=== PATIENT | female | born 1955 | race Two or more races ===

== ENCOUNTER 2025-01-21 08:46 | Outpatient (RCR) | payer MEDICAID, SELFPAY ==
--- NOTE | 2025-01-22 10:20 | CTCCONSULT_ITS ---
Patient: EDDIE GERBER : 1955 MR#: [id number] Page 2 of 2 CONSULTATION NOTE DATE OF CONSULTATION: 01/21/2025 NAME: EDDIE GERBER ACCOUNT: [id number] : 1955 AGE: 69 REFERRING PHYSICIAN: Colton Chen MD PRIMARY PHYSICIAN: Visit summary Eddie Gerber, a female with breast cancer diagnosed 8 months ago, presented for oncology follow-up. Her history includes ER-positive breast cancer with a 3x3x2.5cm tumor, one positive lymph node out of five removed, and an Oncotype Dx score of 40. She has not received chemotherapy or radiation since diagnosis, and her last Prolia dose was 2 years ago. Treatment plan includes initiating chemotherapy despite delay, radiation therapy referral, full body scan for metastasis assessment, obtaining complete records to clarify hormone/HER2 status, anti-endocrine therapy, and restarting Prolia for bone health. REASON FOR VISIT: New breast cancer ONCOLOGY HISTORY: DIAGNOSIS: Malignant neoplasm of unspecified site of right female breast [ICD10] C50.911 DATE OF DIAGNOSIS: 04/23/2024 STAGE/TNM: IIB T2 N1 M0 TREATMENT HISTORY: Care?Plan Start?Date Cycle Day Intent DOCEtaxel?75,?Cyclophosphamide?600 01/21/2025 1 21 Curative?(adjuvant) HISTORY OF PRESENT ILLNESS: 69-year-old female Chief Complaint Follow-up for breast cancer diagnosed 8 months ago, seeking treatment options History of Present Illness Eddie Gerber is a patient with a history of breast cancer diagnosed more than 8 months ago. She presents for follow-up and management of her condition. The patient reports that she was diagnosed with breast cancer while visiting [place]. She underwent a biopsy and ultrasounds, but did not receive radiation therapy. The tumor was found in her breast, and she had 5 lymph nodes removed, one of which was positive for cancer. The tumor mass was 3 x 3 x 2.5 cm, located 3.5 cm from the nipple. Her Oncotype Dx score was 40, performed on July 15, 2024. 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 Eddie has not received any chemotherapy or radiation therapy since her diagnosis. She reports receiving Prolia in the past, with her last dose being almost 2 years ago. The patient's treatment adherence has been limited, as she has not undergone recommended therapies following her initial diagnosis and surgical intervention. The patient's current insurance is [employer], which she had when she returned from [place]. She mentions that no further treatment was provided in [place], but the lymph node removal was performed after her return. Medical History - Breast cancer diagnosed approximately 8 months ago - ER-positive breast cancer with N1 microstatic disease and N1 positive lymph node involvement - Primary breast tumor measuring 3 cm x 3 cm x 2.5 cm, located 3.5 cm from the nipple Surgical History - Breast cancer surgery with removal of 5 lymph nodes, one of which was positive for cancer - Breast biopsy Medications and Supplements - Prolia - Last dose received almost 2 years ago. Social History - Insurance: Patient has [employer] coverage OTHER MEDICAL HISTORY/CONDITIONS: HYPOTHYROIDISM DIABETES TYPE 2 HYPERLIPIDEMIA VITAMIN D DEFICIENCY OBESITY DEPRESSIVE DISORDER HYPERTENSION INSOMNIA GASTRITIS UTIS OSTEOPOROSIS RIGHT?BREAST?LUMPECTOMY?04/2024 FAMILY HISTORY: Father:?DENIES Mother:?DENIES Sibling:?DENIES Children:?DENIES Cancer?History:?RIGHT?BREAST?CANCER SOCIAL HISTORY: Occupational?History:?RETIRED [employer] Education?Level:?Completed something less than 8th grade Marital?Status:?Life?Partner Tobacco?Use:?DENIES ETOH?Use:?SOCIAL?OCCASIONAL?BEER Drug?Note:?DENIES Social History Note:?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 aspirin - 81 mg 1 Capsule Daily 2. atorvastatin - 10 mg 1 tab Daily 3. baclofen - 10 mg 1 tab In the evening 4. FLUoxetine - 20 mg 1 Capsule Daily 5. gemfibrozil - 600 mg 1 tab Twice a Day 6. hydrocodone-acetaminophen - 5-325 mg 1 tab Every 6 Hours 7. ibuprofen - 800 mg 1 tab Three times a day 8. levothyroxine - 50 mcg 1 tab Daily 9. lisinopril - 2.5 mg 1 tab Daily 10. metFORMIN - 850 mg 1 tab In the evening 11. propranoloL - 80 mg 1 tab Twice a Day 12. Vitamin D - 50,000 unit 1 Capsule Weekly Medications Last Reconciled by Cristina Nguyễn RN on 01/21/2025 ALLERGIES: No Known Allergies REVIEW OF SYSTEMS: A complete 14-point review of systems was performed and is negative except as noted in interval history. PHYSICAL EXAMINATION: VITAL SIGNS: Temperature?99, B/P?158/95, Height?62?inches Weight?200?lbs PAIN: 0 - No pain ECOG Performance Status: 0 - Asymptomatic and fully active GENERAL APPEARANCE: Appears well, in no apparent distress, appropriately interactive. HEENT: Normocephalic, no temporal wasting, normal conjunctiva, no scleral icterus, normal hearing, lips without lesions, neck normal range of motion. CARDIOVASCULAR: Not assessed. PULMONARY: Normal respiratory effort, no respiratory distress or use of accessory muscles, speaking in full sentences, no tachypnea. EXTREMITIES: No pedal edema or cyanosis. SKIN: Normal skin appearance. NEUROLOGIC: Alert and oriented x4. PSHYCHIATRIC: Appropriate affect, mood normal, behavior normal, intact thought and speech. LABORATORY DATA: I have personally reviewed and interpreted each of the patient?s relevant lab tests, abnormal findings are below: Date Laboratory, Imaging, and Diagnostic Test Results - Date: 07/15/2024 - Oncotype Dx score: 40 - Breast biopsy: - Tumor size: 3 x 3 x 2.5 cm - Location: 3.5 cm from the nipple - ER status: Positive - Lymph node status: N1 microstatic disease, N1 positive - Lymph node biopsy: - 5 lymph nodes removed - 1 lymph node positive for cancer ASSESSMENT/PLAN: Eddie Gerber is a patient with a history of breast cancer diagnosed over 8 months ago, presenting for oncology follow-up and management. Breast Cancer Assessment: Patient was diagnosed with breast cancer over 8 months ago. The tumor was 3 cm in size, located 3.5 cm from the nipple, with dimensions of 3 x 3 x 2.5 cm. One lymph node was positive (N1 microstatic disease), and 5 lymph nodes were removed during surgery. The Oncotype Dx score was 40, performed on July 15, 2024. The cancer was ER-positive. Based on the Oncotype score, the patient was recommended to receive chemotherapy and anti-endocrine therapy. However, the patient has not received any radiation therapy or chemotherapy to date. The hormone and HER2 status require further clarification. Given the significant delay in treatment initiation, the effectiveness of chemotherapy may be reduced, but it will still be considered. Plan: - Initiate chemotherapy as soon as possible, despite the delay - Refer patient for radiation therapy - Order full body scan to assess for metastatic disease - Obtain complete medical records from previous hospital to clarify: - Hormone receptor status - HER2 status - Details of cancer aggressiveness - Initiate anti-endocrine therapy (specific medication to be determined based on additional information) - Discuss risks, benefits, and alternatives of proposed treatments with patient - Schedule follow-up appointment to review test results and initiate treatment Port catheter placement Osteoporosis Assessment: Patient has a history of Prolia use, suggesting a diagnosis of osteoporosis or high risk for bone loss. The last Prolia dose was administered approximately 2 years ago, indicating a lapse in treatment. Plan: - Restart Prolia treatment - Assess bone health and consider ordering bone density scan - Educate patient on the importance of consistent Prolia administration for bone health ORDERS: Order # Description [id number] Initial PET/CT of Skull to Mid-Thigh [id number] Comprehensive Metabolic Panel - 12 + CBC with Auto Diff [id number] MD Follow Up 4 Week + CA 15-3 [id number] Infusion 5 Hours [id number] Refer To: + Surgery [id number] Injection Clinic 15 Min RETURN TO CLINIC: BILLING AND COMPLIANCE: I reviewed external records from providers outside my specialty as summarized above. I spent a total of 50 minutes on this patient?s care on the day of their visit excluding time spent related to any billed procedures. This time includes time spent with the patient as well as time spent documenting in the medical record, reviewing patients records and tests, obtaining history, placing orders, communicating with other healthcare professionals, counseling the patient, family or caregiver, and/or care coordination for the diagnoses above. Electronically Signed by: Colton Chen MD T: 10:18 AM CC: PCP: Referring: Colton Chen This document was completed utilizing speech recognition software. Grammatical errors, random word insertions, pronoun errors, and incomplete sentences are an occasional consequence of this system due to software limitations, ambient noise, and hardware issues. Any formal questions or concerns about the content, text or information contained within the body of this dictation should be directly addressed to the provider for clarification.
== END 2025-01-21 23:59 | disposition home or self-care (01) ==
LOC: SCTC 08:46
PROVIDERS: PCP Physician Assistant; Referring Provider Internal Medicine Hematology & Oncology; Visit Provider Internal Medicine Hematology & Oncology
DX: C50.811 Malignant neoplasm of overlapping sites of right female breast (principal); Z17.0 Estrogen receptor positive status [ER+]
CPT/HCPCS: 99213; G0463

== ENCOUNTER 2025-02-04 13:47 | Outpatient (RCR) | payer MEDICAID, SELFPAY | END 2025-02-21 23:59 | disposition home or self-care (01) | LOC: SCTC 13:47 | PROVIDERS: PCP Physician Assistant; Referring Provider Physician Assistant; Visit Provider Radiology Therapeutic Radiology | DX: C50.811 Malignant neoplasm of overlapping sites of right female breast (principal); Z17.0 Estrogen receptor positive status [ER+] | CPT/HCPCS: 99213; G0463 ==

== ENCOUNTER → 2025-02-19 | Outpatient (CLI) | payer MEDICAID, SELFPAY ==
--- NOTE | 2025-02-19 08:45 | XR_ITS ---
EXAMINATION: PET/CT FUSION SKULL TO THIGH EXAM DATE AND TIME: February 19, 2025 0939 hours Comparison screening mammogram November 25, 2015 INDICATIONS: Breast carcinoma diagnosis, staging CTDI:vol (mGy) 9.58 DLP: (mGycm) 875.15 PROCEDURE: 16.57 mCi FDG was administered intravenously To allow for distribution and uptake of radiotracer, the patient was allowed to rest quietly in a shielded room. Imaging was performed on an integrated 16-slice PET/CT scanner, with scanning from the skull base to the mid thigh. Serum blood glucose at the time of the injection was measured 133 mg/dL. CT scanning was performed without oral or intravenous contrast material. FINDINGS: Head and Neck: There is no arelis hypermetabolism in the neck. The visualized portions of the brain are normal in appearance on CT. Chest: Surgical clips right breast with architectural distortion, likely related to treated right breast cancer Axial image 98 demonstrates 19 mm central circumscribed right breast mass which is not hypermetabolic No pathologic axillary lymphadenopathy There is no arelis hypermetabolism in the chest. There are no pulmonary nodules. Abdomen and Pelvis: There is no arelis hypermetabolism in retroperitoneal or pelvic chains. The spleen is normal in size and FDG avidity. Musculoskeletal: Marrow uptake is within normal range. IMPRESSION: Axial image 98 demonstrates 19 mm central circumscribed non hypermetabolic right breast mass, no axillary lymphadenopathy Recommend diagnostic mammography, bilateral breast sonography follow-up
== END | disposition home or self-care (01) ==
LOC: CDIM 08:26
PROVIDERS: PCP Physician Assistant; Referring Provider Internal Medicine Hematology & Oncology; Visit Provider Internal Medicine Hematology & Oncology
DX: C50.911 Malignant neoplasm of unspecified site of right female breast (principal)
CPT/HCPCS: 78815; A9552

== ENCOUNTER → 2025-02-23 | Outpatient (CLI) | payer MEDICAID, SELFPAY ==
--- NOTE | 2025-02-23 08:45 | XR_ITS ---
Examination: Screening digital mammography, bilateral Computer aided detection 3-D breast Tomosynthesis, bilateral Date and time of exam: February 23, 2025 at 12:13 PM Compared to mammograms dating to December 31, 2007 Indication: Screening, personal history right breast cancer 2 years ago Technique: Nonmagnified MLO, CC views of the breasts to been obtained, reconstructed from 3-D Tomosynthesis images. R2 computer aided detection program utilized for evaluation of suspicious masses and/or abnormal calcifications. 3-D Tomosynthesis images obtained. Findings: The breasts are heterogeneously dense, which may obscure small masses Surgical clips and architectural distortion 12:00 position right breast Architectural distortion in the right axilla on the MLO view Impression: BI-RADS Category 0: Incomplete: Need additional imaging evaluation Architectural distortion in the right axilla on the MLO view, recommend follow-up spot tomographic views upper outer right breast posterior depth as well as bilateral breast sonography to complete the workup
== END | disposition home or self-care (01) ==
LOC: CDIM 09:00
PROVIDERS: Referring Provider Physician Assistant; Visit Provider Physician Assistant
DX: Z12.31 Encounter for screening mammogram for malignant neoplasm of breast (principal); R92.8 Other abnormal and inconclusive findings on diagnostic imaging of breast
CPT/HCPCS: 77063; 77067

== ENCOUNTER 2025-02-24 09:15 | Day surgery (SDC) | payer MEDICAID, SELFPAY ==
--- NOTE | 2025-02-23 08:49 | EKG_ITS ---
[facility] Test Date: 2025-02-23 Pat Name: EDDIE BENAVIDES Department: Room: - Gender: Female [employer]: ELLEN : 1955 Requested By: Sameer Fabian Order Number: [id number] Reading MD: Sameer Fabian Measurements Intervals [place] Rate: 69 P: -8 AR: 174 QRS: -17 QRSD: 97 T: 43 QT: 357 QTc: 384 Interpretive Statements SINUS RHYTHM VOLTAGE CRITERIA FOR LVH [MEETS CRITERIA IN ONE OF: R(aVL), S(V1), R(V5), R(V5/V6)+S(V1)] No previous ECG available for comparison /store/S0/[id number]/ecg/[id number].pdf
[2025-02-23 10:51] VITALS: BMI 37.3
[2025-02-23 12:45] LABS: Basophils % (Auto) 0 % (0-2.5); Eosinophils # (Auto) 0.2 Thou/mm3 (0.0-0.5); Eosinophils % (Auto) 2 % (0-10); Hemoglobin 11.2 g/dL (12.0-16.0); Immature Granulocytes % (Auto) 0 % (0-0); Immature Granulocytes Auto 0.04 Thou/mm3 (0.00-0.00); Lymphocytes # (Auto) 3.7 Thou/mm3 (1.0-4.8); Lymphocytes % (Auto) 40 % (10-50); Mean Corpuscular HGB Conc 32.9 g/dl (31.0-37.0); Mean Corpuscular Hemoglobin 29.1 pg (25.0-35.0); Mean Corpuscular Volume 88 fL (80-100); Monocytes # (Auto) 0.7 Thou/mm3 (0.0-0.8); Monocytes % (Auto) 7 % (0-12); Neutrophils # (Auto) 4.6 Thou/mm3 (1.8-7.7); Neutrophils % (Auto) 50 % (37-80); Nucleated Red Blood Cell % 0 /100 WBC (0); Platelet Count 286 Thou/mm3 (140-440); RDW Standard Deviation 46.5 fL (36.4-46.3); Red Blood Count 3.85 Miln/mm3 (4.00-5.20); White Blood Count 9.2 Thou/mm3 (3.6-11.0)
[2025-02-23 12:51] LABS: Partial Thromboplastin Time 28.2 Seconds (22.0-36.0); Prothrombin Time 11.4 Seconds (9.0-12.2)
[2025-02-23 12:56] LABS: Alanine Aminotransferase 27 U/L (10-49); Albumin, Serum 4.5 gm/dL (3.4-4.8); Albumin/Globulin Ratio 1.7 (1.2-2.2); Alkaline Phosphatase 80 U/L (46-116); Anion Gap 8 (7-16); Aspartate Amino Transferase 26 U/L (0-34); BUN/Creatinine Ratio 22 Ratio (12-20); Bilirubin,Total 0.3 mg/dL (0.3-1.2); Blood Urea Nitrogen 20 mg/dL (9-23); Calcium 9.4 mg/dL (8.3-10.6); Calcium (Corrected) 9.4 mg/dL (8.5-10.1); Carbon Dioxide 28.4 mMol/L (20.0-31.0); Chloride 106 mMol/L (98-107); Creatinine (Component) 0.9 mg/dL (0.6-1.3); Estimated Creatinine Clearance 64.2 mL/min (>60); Globulin 2.6 gm/dL (2.3-3.5); Glucose 118 mg/dL (74-106); Osmolality,Calculated 286 (275-295); Potassium 3.8 mMol/L (3.4-5.1); Sodium 142 mMol/L (136-145); Total Protein 7.1 gm/dL (5.7-8.2); eGFR > 60 See Note
[2025-02-24] VITALS (9 sets, daily range): BP systolic 126–171; BP diastolic 66–84; PULSE 57–67; RESP 12–17; TEMP 36.5–36.8; O2SAT 96–100; BMI 37.0
--- NOTE | 2025-02-24 11:15 | XR_ITS ---
Examination: AP chest single view Technique one AP portable supine chest single view Date and time: February 24, 2025 1225 hours INDICATIONS: Port-A-Cath insertion today. FINDINGS: Right subclavian Port-A-Cath tip right atrium No pneumothorax IMPRESSION: Right subclavian Port-A-Cath tip right atrium
--- NOTE | 2025-02-24 12:59 | SUR.PHASEI ---
pt received from OR in recovery bay 4. pt asleep but responds to voice, breathing unlabored on oxymask 6l. v/s stable. pt dressing to right upper chest cdi. report received from Josie ESCOBAR and Dr. May.
--- NOTE | 2025-02-24 13:06 | XR_ITS ---
Examination: AP chest single view TECHNIQUE: AP portable upright chest single view Date and time: September 26, 2024 1328 hours INDICATIONS: Postop Port-A-Cath insertion FINDINGS: Right subclavian Port-A-Cath tip SVC satisfactory position No pneumothorax Mild prominence left ventricle Subsegmental atelectasis left base IMPRESSION: Right subclavian Port-A-Cath tip satisfactory position
--- NOTE | 2025-02-24 13:17 | ESOP_ITS ---
Date of Procedure 02/24/25 Pre Op Diagnosis Status post carcinoma of the breast requiring chemotherapy Stricture of veins Post Op Diagnosis Same Procedure Insertion of a Port-A-Cath using the right subclavian vein Findings Patient is found to have a patent right subclavian vein which was used for Port-A-Cath Procedure Description After the patient was brought to the operating room he was placed in supine position. Site-Rite ultrasound was used to identify the right t subclavian vein and I chose this for insertion of the Port-A-Cath. After the patient's chest and neck were prepped with chloreprep solution and draped I used a mini stick to get into the right subclavian vein. Then I passed a small guidewire measuring 0.018 inch in diameter into the vein. Then this was switched over to a catheter to accommodate larger guidewire measuring 0.035 inches in diameter which was basically a J-wire. Then I used a 9 Cymraes valved vessel dilator over the guidewire which was then pulled out. Then I introduced a 8 Cymraes polyurethane catheter from the [employer] and positioned it on the distal part of the superior vena cava. An x-ray was obtained to confirm the position of the tip. The tip was about 20 cm from the entry site then I made a small pocket 5 cm's below the entry site on the right chest below the clavicle to accommodate the port after injecting local anesthesia with 1% Xylocaine. Then I tunneled the polyurethane catheter from the entry site to this pocket in the chest wall and I connected it to the regular port from [employer] called profuse using a catheter lock. Excellent blood return was obtained at the end of the procedure and this was flushed with heparinized saline. Then the port was attached to the chest wall muscle using 0 Vicryl sutures. Subcutaneous tissues was closed with 3-0 chromic and the skin by 5-0 nylon stitches. Dressing was applied with Adaptic and 4 x 4 and the patient tolerated the procedure well and left operating room in stable condition. Anesthesia other (General LMA) Pathology / specimen None Estimated Blood Loss 30 Surgeon Jacob Espinoza MD Surgical Staff Operation Date: 02/24/25 11:30 Case Staff Anesthesiologist: Virgil May
--- NOTE | 2025-02-24 13:58 | SUR.PHASEII ---
pt able to tolerate oral fluids without difficulty swallowing or nausea/vomiting.
--- NOTE | 2025-02-24 14:11 | XR_ITS ---
Examination: AP chest single view Technique one AP upright portable chest single view Date and time: November 24, 2024 1535 hours INDICATIONS: Patient in the Port-A-Cath line FINDINGS: No current obtained in the right subclavian Port-A-Cath line, tip in the SVC satisfactory position IMPRESSION: No current kink in the Port-A-Cath line
--- NOTE | 2025-02-24 14:36 | SUR.PHASEII ---
pt awake and alert, breathing unlabored on room air. v/s stable. pt dressing to right upper chest cdi. pt able to ambulate to wheelchair with steady gait. d/c instructions given with s/o Elpidio in room using health care sanitary technician Marleni Prince, all questions answered. pt d/c via wheelchair with all belongings.
== END 2025-02-24 14:36 | disposition home or self-care (01) ==
PROVIDERS: Family Provider Surgery; PCP Physician Assistant; Referring Provider Surgery; Visit Provider Surgery
PROC: (CPT 36561; principal; 2025-02-24 11:15)
DX: I87.1 Compression of vein (principal); I10 Essential (primary) hypertension; E71.19 Other disorders of branched-chain amino-acid metabolism; E03.9 Hypothyroidism, unspecified; E78.5 Hyperlipidemia, unspecified; E66.01 Morbid (severe) obesity due to excess calories; D05.11 Intraductal carcinoma in situ of right breast; Z01.810 Encounter for preprocedural cardiovascular examination
CPT/HCPCS: 36561; 36415; 71045; 80053; 85025; 85610; 85730; 93005; A4217; A4649; C1788; C1894; J0131; J1100; J2250; J2405; J2704; J3010; J7999

== ENCOUNTER 2025-02-27 19:11 | Emergency (ER) | payer MEDICAID, SELFPAY ==
[2025-02-27 19:54] VITALS: BP 133/77; PULSE 76; RESP 20; TEMP 36.6; O2SAT 95; BMI 35.0
--- NOTE | 2025-02-27 20:08 | PD.EDHA ---
ED Headache RME/HPI General Chief Complaint: Headache Stated Complaint: HEADACHE Time Seen by Provider: 02/27/25 20:01 Source: patient Arrival date/time: 02/27/25 19:11 69-year-old female with a history of hyperlipidemia, breast cancer, hypertension, type 2 diabetes presents to the emergency room with a chief complaint of a 10 out of 10 headache. Patient states she began having chemotherapy for her breast cancer yesterday. Mode of arrival: ambulatory Limitations: no limitations Related Data Home Medications ?Medication ?Instructions ?Recorded ?Confirmed aspirin 81 mg tablet,delayed 81 mg PO QDAY 02/23/25 02/23/25 release (Adult Aspirin Regimen) atorvastatin 10 mg tablet 10 mg PO QDAY 02/23/25 02/23/25 dexamethasone 4 mg tablet 4 mg PO BID 02/23/25 02/23/25 ergocalciferol (vitamin D2) 1,250 1,250 mcg PO QWEEK 02/23/25 02/23/25 mcg (50,000 unit) capsule fluoxetine 20 mg capsule (Prozac) 20 mg PO QAM 02/23/25 02/23/25 gabapentin 300 mg capsule 300 mg PO TID 02/23/25 02/23/25 gemfibrozil 600 mg tablet (Lopid) 600 mg PO BID 02/23/25 02/23/25 ibuprofen 800 mg tablet 800 mg PO TID PRN pain 02/23/25 02/23/25 lisinopril 2.5 mg tablet 2.5 mg PO QDAY 02/23/25 02/23/25 metformin 850 mg tablet 850 mg PO DAILY 02/23/25 02/23/25 omeprazole 20 mg capsule,delayed 20 mg PO QDAY 02/23/25 02/23/25 release ondansetron HCl 8 mg tablet 8 mg PO Q8H PRN nausea and vomiting 02/23/25 02/23/25 prochlorperazine maleate 5 mg 5 mg PO Q6H PRN nausea and vomiting 02/23/25 02/23/25 tablet (Compazine) propranolol 80 mg tablet 80 mg PO BID 02/23/25 02/23/25 Allergies Allergy/AdvReac Type Severity Reaction Status Date / Time No Known Allergies Allergy Verified 02/27/25 19:14 Review of Systems Review of Systems Systems Reviewed: All systems reviewed, normal except as documented Constitutional Constitutional: Reports system reviewed and no additional complaints, except as documented, Denies fatigue, Denies fever(s), Reports headache(s) and Reports weakness Eyes Eyes: Reports system reviewed and no additional complaints, except as documented, Denies blurry vision and Denies change in vision ENT Ears, Nose, Mouth, and Throat: Reports system reviewed and no additional complaints, except as documented, Denies otalgia, Reports headache(s), Denies nasal congestion, Denies throat swelling and Denies vertigo Cardiovascular Cardiovascular: Reports system reviewed and no additional complaints, except as documented, Denies chest pain, Denies dyspnea and Denies dyspnea on exertion Respiratory Respiratory: Reports system reviewed and no additional complaints, except as documented, Denies chest congestion, Denies cough, Denies dyspnea, Denies dyspnea on exertion and Denies wheezing Gastrointestinal Gastrointestinal: Reports system reviewed and no additional complaints, except as documented, Denies abdominal pain, Denies cramping, Denies nausea and Denies vomiting Genitourinary Genitourinary: Reports system reviewed and no additional complaints, except as documented Musculoskeletal Musculoskeletal: Reports system reviewed and no additional complaints, except as documented and Denies back pain Integumentary/Breasts Skin/Breast: Reports system reviewed and no additional complaints, except as documented and Denies wounds Neurologic Neurologic: Reports system reviewed and no additional complaints, except as documented, Denies confusion, Reports headache(s), Denies lack of coordination, Denies vertigo and Reports weakness Psychiatric Psychiatric: Reports system reviewed and no additional complaints, except as documented, Denies anxiety, Denies confusion, Denies depression, Denies paranoia, Denies suicidal ideation and Denies tactile hallucinations Endocrine Endocrine: Reports system reviewed and no additional complaints, except as documented and Denies fatigue Hematologic/Lymphatic Hematologic/Lymphatic: Reports system reviewed and no additional complaints, except as documented and Denies lymphadenopathy Allergic/Immunologic Allergic/Immunologic: Reports system reviewed and no additional complaints, except as documented, Denies throat swelling, Denies urticaria and Denies wheezing Past Medical History Past Medical History NEUROLOGIC: Negative Neurological Disorders or Seizures CARDIAC: Positive Cardiac Disorders, Hypercholesterolemia and Hypertension; Negative Congestive Heart Failure RESPIRATORY: Negative Chronic Obstructive Pulmonary Disease (COPD) GASTROINTESTINAL: Positive Gastrointestinal Disorders and Obesity GENITOURINARY: Negative Genitourinary Disorders or Renal Disease REPRODUCTIVE: Positive Previous Pregnancies MUSCULOSKELETAL: Positive Musculoskeletal Disorders and Arthritis ENT: Positive Glaucoma ENDOCRINE: Positive Endocrine Disorders and Diabetes Mellitus Type 2; Negative Diabetes Mellitus Type 1 HEMATOLOGIC: Positive Blood Disorders and Anemia PSYCHO/SOCIAL: Positive Depression OTHER HISTORY: Positive Cancer; Negative Hospitalization, Autoimmune Disease, Shingles, Blood Transfusions, Blood Transfusion Reaction, Anesthesia Reactions or Clostridium Difficile Family History FAMILY HISTORY: Negative Family Psychiatric Problems, Family Respiratory Disorders, Family Cardiac Disorders, Family Gastrointestinal Problems, Family Cancer, Family Surgery or Family Anesthesia Reaction Surgical History SURGICAL: Positive Lumpectomy (right) Social History SMOKING STATUS: Never smoker ED Exam General Limitations: Present no limitations General appearance: Present alert and in no apparent distress Head Head exam: Present atraumatic, normocephalic and normal inspection Eye Eye exam: Present normal appearance, PERRL and EOMI ENT ENT exam: Present normal exam, normal oropharynx and mucous membranes moist Neck Neck exam: Present normal inspection, full ROM and trachea midline Chest Chest inspection: Present normal inspection and symmetric chest wall rise Respiratory Respiratory exam: Present normal lung sounds bilaterally Cardiovascular Cardiovascular exam: Present regular rate, normal rhythm and normal heart sounds Abdominal Exam Abdominal exam: Present soft and normal bowel sounds Extremities Exam Extremities exam: Present normal inspection and full ROM Back Exam Back exam: Present normal inspection and full ROM Neurological Exam Neurological exam: Present alert, oriented X3 and CN II-XII intact Psychiatric Psychiatric exam: Present normal affect and normal mood Skin Skin exam: Present warm, dry, intact and normal color Course Quality Measures none Orders Category Date Time Status CT head/brain wo con Stat Exams 02/27/25 20:08 Ordered CBC Stat Lab 02/27/25 20:08 Ordered CMP [Comprehensive Metabolic Panel] Stat Lab 02/27/25 20:08 Ordered Vital Signs Vital signs: Vital Signs Temperature 98 F 02/27/25 19:54 Pulse Rate 76 02/27/25 19:54 Respiratory Rate 20 02/27/25 19:54 Blood Pressure 133/77 H 02/27/25 19:54 Pulse Oximetry (%) 95 02/27/25 19:54 Oxygen Delivery Method Room Air 02/27/25 19:54 Headache MDM Narrative MDM Narrative:: 69-year-old female with a history of hyperlipidemia, breast cancer, hypertension, type 2 diabetes presents to the emergency room with a chief complaint of a 10 out of 10 headache. Patient states she began having chemotherapy for her breast cancer yesterday. Patient is hemodynamically stable and in no apparent distress. Physical examination showed a normal neurological exam. Pupils are PERRLA EOMs are intact patient is a GCS of 15 she is alert and oriented x 3. Patient denies any trauma but states she just started her breast cancer chemotherapy and her symptoms have began right after. Blood work and a CT of the head and brain were ordered but the patient had eloped prior to getting her blood drawn and her CT scan. Patient eloped prior to final disposition Patient data External records reviewed:: [facility] previous records Clinical information provided by:: patient Social determinants that could affect healthcare access:: none Patient has the following chronic illnesses:: Breast cancer How is presenting disease/condition affected by chronic disease/condition?: exacerbated by Evaluation data The following diagnostics were reviewed and interpreted by me:: lab results and radiology exam(s) Lab and/or radiology exams considered but not ordered:: Labs and radiology exams considered in order Interpretation Summary: CT head and brain- Medications / Prescriptions Medications or Prescriptions considered but not ordered:: No medication given Medication administrations:: No medication given Consultations Consultation(s) initiated? (list below): No Diagnosis Differential diagnosis headache: tension headache, headache and postconcussion syndrome Most likely diagnosis given after review of the tests above:: Headache Admission Indicated Admission indicated?: not indicated Admission Request Was there a request for admission?: No Disposition Plan Disposition Plan: Discharge Discharge Attestation Discharge Attestation: The patient and all family members were given an opportunity to ask questions and understood the discharge instructions. Discharge instructions specifically effects, indications for sooner follow up or return to the emergency department, and the expected course of current diagnosis. Patient condition: Stable Discharge Plan Plan Patient Disposition: Elopement Discharge Disposition comment: Stable Prescriptions/Referrals Prescriptions/Med Rec: No Action gabapentin 300 mg capsule 300 mg PO TID fluoxetine [Prozac] 20 mg capsule 20 mg PO QAM ibuprofen 800 mg tablet 800 mg PO TID PRN (Reason: pain) ondansetron HCl 8 mg tablet 8 mg PO Q8H PRN (Reason: nausea and vomiting) Rx Instructions: 1st dose 1-2 hr before radiation omeprazole 20 mg capsule,delayed release(DR/EC) 20 mg PO QDAY metformin 850 mg tablet 850 mg PO DAILY ergocalciferol (vitamin D2) 1,250 mcg (50,000 unit) capsule 1,250 mcg PO QWEEK atorvastatin 10 mg tablet 10 mg PO QDAY prochlorperazine maleate [Compazine] 5 mg tablet 5 mg PO Q6H PRN (Reason: nausea and vomiting) lisinopril 2.5 mg tablet 2.5 mg PO QDAY dexamethasone 4 mg tablet 4 mg PO BID propranolol 80 mg tablet 80 mg PO BID gemfibrozil [Lopid] 600 mg tablet 600 mg PO BID aspirin [Adult Aspirin Regimen] 81 mg tablet,delayed release (DR/EC) 81 mg PO QDAY Referrals: Inocencio Michel [Primary Care Provider] - In 1 week Problem List Clinical Impression: Headache Patient/Caregiver Discharge Instructions Print Language: Indian
--- NOTE | 2025-02-27 21:55 | PC.NURSE ---
Pt was called in the lobby with no answer and was looked for in the conference room where pt was placed after triage. Pt was not there for tech or for lab. Attempted to call CT, CT did not answer.
--- NOTE | 2025-02-27 22:00 | PC.NURSE ---
CT also could not find Pt.
--- NOTE | 2025-02-27 22:13 | PC.NURSE ---
Pt was looked for in conference room, called in the lobby and was looked for outside. Could not find Pt.
--- NOTE | 2025-02-27 22:29 | PC.NURSE ---
Pt again was looked for in the conference room was called in the lobby and was not found outside.
== END 2025-02-28 01:34 | disposition left against medical advice (07) ==
PROVIDERS: Emergency Provider Emergency Medicine; PCP Physician Assistant
DX: R51.9 Headache, unspecified (principal); Z53.29 Procedure and treatment not carried out because of patient's decision for other reasons
CPT/HCPCS: 80053; 85025; 99281

== ENCOUNTER → 2025-03-11 | Outpatient (CLI) | payer MEDICAID, SELFPAY ==
--- NOTE | 2025-03-11 13:30 | ECHO_ITS ---
Transthoracic Echo Report Ht (in): 62 Wt (lb): 192 Exam Location: Echo Lab Status: Preadmit Wheat Inspector: Lorrie Acosta Indications: Procedure Performed: BP: / HR: Technical Quality: Technically Difficult Study Due to Body Habitus MEASUREMENTS (Male / Female) Normal Values 2D ECHO LV Diastolic Diameter PLAX 3.4 cm 4.2 - 5.9 / 3.9 - 5.3 cm LV Systolic Diameter PLAX 1.8 cm IVS Diastolic Thickness 1.9 cm 0.6 - 1.0 / 0.6 - 0.9 cm LVPW Diastolic Thickness 1.2 cm 0.6 - 1.0 / 0.6 - 0.9 cm LV Relative Wall Thickness 0.9 LVOT Diameter 2.2 cm Ascending Aorta Diameter 3.1 cm DOPPLER AV Peak Velocity 103.0 cm/s AV Peak Gradient 4.2 mmHg AI Peak Velocity 187.0 cm/s AI Peak Gradient 14.0 mmHg AI Pressure Half Time 467.0 ms LVOT Peak Velocity 89.7 cm/s LVOT Peak Gradient 3.2 mmHg AV Area Cont Eq pk 3.3 cm? MV Area PHT 3.3 cm? Mitral E Point Velocity 49.5 cm/s Mitral A Point Velocity 68.4 cm/s Mitral E to A Ratio 0.7 LV E' Lateral Velocity 6.0 cm/s Mitral E to LV E' Lateral Ratio 8.3 LV E' Septal Velocity 5.0 cm/s Mitral E to LV E' Septal Ratio 9.9 PV Peak Velocity 93.7 cm/s PV Peak Gradient 3.5 mmHg FINDINGS Left Ventricle Normal left ventricular size and systolic function with no obvious regional wall motion abnormalities. Moderate left ventricular hypertrophy. Normal left ventricular diastolic filling pattern for age. The ejection fraction is visually estimated at 65-70%. Right Ventricle The right ventricle is normal in mildlly dilated with reduced systolic function. The estimated right ventricular systolic pressure can not be determined due to inadeqaute Doppler signal. Left Atrium The left atrium is normal by two-dimensional, color flow and Doppler imaging with no structural abnormalities, no thrombus formation present. Right Atrium The right atrium is normal by two-dimensional imaging, color flow and Doppler imaging with no structural abnormalities, no thrombus formation present. Atrial Septum The interatrial septum appears normal with no evidence of a shunt. Aorta The aorta is normal by two-dimensional, color flow and Doppler interrogation. Mitral Valve The mitral valve is normal by two-dimensional, color flow and Doppler interrogation. There is no significant mitral valve regurgitation, stenosis or prolapse. Aortic Valve The aortic valve is trileaflet and sclerotic. There is trace aortic regurgitation. Tricuspid Valve The tricuspid valve is normal by two-dimensional, color flow and Doppler interrogation. There is no significant tricuspid valve regurgitation. Pulmonic Valve The pulmonic valve is not well visualized. There is no significant pulmonic valve regurgitation. Vessels The pulmonary artery appears normal. The inferior vena cava pulmonary and hepatic veins appear normal. Pericardium The pericardium is normal by two-dimensional imaging. There is no significant pericardial effusion. CONCLUSIONS Ata Anumandla (Electronically Signed) Final Date: 11 March 2025 18:17
== END | disposition home or self-care (01) ==
LOC: SDIM 13:11
PROVIDERS: PCP Physician Assistant; Referring Provider Internal Medicine Hematology & Oncology; Visit Provider Internal Medicine Hematology & Oncology
DX: C50.911 Malignant neoplasm of unspecified site of right female breast (principal)
CPT/HCPCS: 93306

== ENCOUNTER 2025-03-20 10:22 | Outpatient (RCR) | payer MEDICAID, SELFPAY ==
[2025-02-25 11:01] LABS: Basophils % (Auto) 0 % (0-2.5); Eosinophils % (Auto) 0 % (0-10); Hematocrit 30.3 % (36.0-46.0); Hemoglobin 10.2 g/dL (12.0-16.0); Immature Granulocytes % (Auto) 1 % (0-0); Lymphocytes # (Auto) 2.2 Thou/mm3 (1.0-4.8); Lymphocytes % (Auto) 13 % (10-50); Mean Corpuscular HGB Conc 33.7 g/dl (31.0-37.0); Mean Corpuscular Hemoglobin 29.5 pg (25.0-35.0); Mean Corpuscular Volume 88 fL (80-100); Monocytes # (Auto) 0.8 Thou/mm3 (0.0-0.8); Monocytes % (Auto) 5 % (0-12); Neutrophils % (Auto) 82 % (37-80); Nucleated Red Blood Cell % 0 /100 WBC (0); Platelet Count 264 Thou/mm3 (140-440); RDW Standard Deviation 46.3 fL (36.4-46.3); Red Blood Count 3.46 Miln/mm3 (4.00-5.20); White Blood Count 17.1 Thou/mm3 (3.6-11.0)
[2025-02-25 11:19] LABS: Alanine Aminotransferase 24 U/L (10-49); Albumin, Serum 4.2 gm/dL (3.4-4.8); Albumin/Globulin Ratio 1.8 (1.2-2.2); Alkaline Phosphatase 69 U/L (46-116); Anion Gap 10 (7-16); Aspartate Amino Transferase 23 U/L (0-34); BUN/Creatinine Ratio 22 Ratio (12-20); Bilirubin,Total 0.3 mg/dL (0.3-1.2); Blood Urea Nitrogen 20 mg/dL (9-23); Calcium 9.1 mg/dL (8.3-10.6); Calcium (Corrected) 9.1 mg/dL (8.5-10.1); Carbon Dioxide 23.7 mMol/L (20.0-31.0); Chloride 106 mMol/L (98-107); Creatinine (Component) 0.9 mg/dL (0.6-1.3); Globulin 2.3 gm/dL (2.3-3.5); Glucose 188 mg/dL (74-106); Osmolality,Calculated 287 (275-295); Potassium 4.1 mMol/L (3.4-5.1); Sodium 140 mMol/L (136-145); Total Protein 6.5 gm/dL (5.7-8.2); eGFR > 60 See Note
--- NOTE | 2025-03-10 00:47 | CTCFLWUP_ITS ---
Patient: EDDIE GERBER : 1955 Page 6 of 8 FOLLOW UP NOTE DATE OF SERVICE: 03/04/2025 NAME: EDDIE GERBER ACCOUNT: [id number] : 1955 AGE: 69 INTERVAL HISTORY: Subjective: Chief Complaint Generalized pain ( Everything hurts, my head, my stomach, my whole body ), nausea, loss of appetite, weight loss, fatigue after first chemotherapy treatment History of Present Illness Eddie is a Greek-speaking patient with breast cancer who presents for follow- up after her first chemotherapy treatment. She reports generalized pain, including headache, stomach pain, and body aches, as well as loss of appetite and weight loss. The patient states that everything hurts, including her head, stomach, and whole body. She also describes a popping sensation, which is attributed to the injection given to stimulate cell production. Eddie reports feeling very bad after her first chemotherapy treatment, with significant pain and loss of appetite. She has lost weight, dropping from 204 pounds to 192 pounds. The patient expresses concern about the severity of her symptoms, mentioning that she went to the hospital on Sunday due to feeling worse than expected. Eddie reports adherence to her nausea medication regimen but states that she has run out of the pre-chemotherapy pills. She expresses a desire for a lower treatment dose due to the severity of her symptoms. The patient also mentions concerns about her diet, particularly regarding the consumption of sweets and milk. Recent healthcare interactions include a PET-CT scan, which showed cancer only in the right breast with no metastasis, and a hospital visit on Sunday due to severe symptoms. The patient has completed one out of four planned chemotherapy cycles. Medications and Supplements - Chemotherapy - First cycle completed. Patient experiencing significant side effects including pain all over the body, headache, stomach pain, loss of appetite, and weight loss. - Nausea medications - Two types: one taken every 8 hours, another every 6 hours. - Patient has these medications but ran out of the pre-chemotherapy pills. - Pre-chemotherapy pills - 12 pills given, to be taken for 3 days before chemotherapy. - Patient has already used all of these. Review of Systems General: Positive for generalized pain, fatigue, decreased appetite, and weight loss. HEENT: Positive for headache. Gastrointestinal: Positive for abdominal pain, negative for nausea and vomiting. Musculoskeletal: Positive for hand pain and generalized body aches. Other: Positive for popping sensation associated with injection. Objective: Vital Signs - Weight: 192 kg Laboratory, Imaging, and Diagnostic Test Results - PET-CT scan: No cancer detected except in the right breast. No metastatic spread. ONCOLOGY HISTORY: DIAGNOSIS: Malignant neoplasm of unspecified site of right female breast [ICD10] C50.911 DATE OF DIAGNOSIS: 04/23/2024 STAGE/TNM: IIB T2 N1 M0 TREATMENT HISTORY: Care?Plan Start?Date Cycle Day Intent DOCEtaxel?75,?Cyclophosphamide?600 02/26/2025 1 21 Curative?(adjuvant) HISTORY OF PRESENT ILLNESS: 69-year-old female Chief Complaint Follow-up for breast cancer diagnosed 8 months ago, seeking treatment options History of Present Illness Eddie Gerber is a patient with a history of breast cancer diagnosed more than 8 months ago. She presents for follow-up and management of her condition. The patient reports that she was diagnosed with breast cancer while visiting [place]. She underwent a biopsy and ultrasounds, but did not receive radiation therapy. The tumor was found in her breast, and she had 5 lymph nodes removed, one of which was positive for cancer. The tumor mass was 3 x 3 x 2.5 cm, located 3.5 cm from the nipple. Her Oncotype Dx score was 40, performed on July 15, 2024. 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 Eddie has not received any chemotherapy or radiation therapy since her diagnosis. She reports receiving Prolia in the past, with her last dose being almost 2 years ago. The patient's treatment adherence has been limited, as she has not undergone recommended therapies following her initial diagnosis and surgical intervention. The patient's current insurance is [employer], which she had when she returned from [place]. She mentions that no further treatment was provided in [place], but the lymph node removal was performed after her return. Medical History - Breast cancer diagnosed approximately 8 months ago - ER-positive breast cancer with N1 microstatic disease and N1 positive lymph node involvement - Primary breast tumor measuring 3 cm x 3 cm x 2.5 cm, located 3.5 cm from the nipple Surgical History - Breast cancer surgery with removal of 5 lymph nodes, one of which was positive for cancer - Breast biopsy Medications and Supplements - Prolia - Last dose received almost 2 years ago. Social History - Insurance: Patient has [employer] coverage OTHER MEDICAL HISTORY/CONDITIONS: HYPOTHYROIDISM DIABETES TYPE 2 HYPERLIPIDEMIA VITAMIN D DEFICIENCY OBESITY DEPRESSIVE DISORDER HYPERTENSION INSOMNIA GASTRITIS UTIS OSTEOPOROSIS RIGHT?BREAST?LUMPECTOMY?04/2024 FAMILY HISTORY: Father:?DENIES Mother:?DENIES Sibling:?DENIES Children:?DENIES Cancer?History:?RIGHT?BREAST?CANCER SOCIAL HISTORY: Occupational?History:?RETIRED [employer] Education?Level:?Completed something less than 8th grade Marital?Status:?Life?Partner Tobacco?Use:?DENIES ETOH?Use:?SOCIAL?OCCASIONAL?BEER Drug?Note:?DENIES Social History Note:?LIVES WITH LIFE [employer]NER AND [employer] HISTORY: Menarche?-?Age:?13 Hormone?Use:?ADMITS?BC?PILLS?IN?PAST :?4 Live?Births:?4 Age?1st?:?17 Gynecological?Note:?LAST MENSES AT AGE 57 Gynecological?Note?2:?LST PAP/MAMMO LAST YEAR IN [place] MEDICATIONS: 1. Anti-Diarrheal (loperamide) - 2 mg 2 tab Daily 2. aspirin - 81 mg 1 Capsule Daily 3. atorvastatin - 10 mg 1 tab Daily 4. baclofen - 10 mg 1 tab In the evening 5. Compazine - 5 mg 5 mg Daily 6. dexamethasone - 4 mg 2 tab take 2 tabs twice daily starting 1 day prior to ch 7. FLUoxetine - 20 mg 1 Capsule Daily 8. gemfibrozil - 600 mg 1 tab Twice a Day 9. hydrocodone-acetaminophen - 5-325 mg 1 tab Every 6 Hours 10. ibuprofen - 800 mg 1 tab Three times a day 11. levothyroxine - 50 mcg 1 tab Daily 12. lisinopril - 2.5 mg 1 tab Daily 13. metFORMIN - 850 mg 1 tab In the evening 14. ondansetron - 8 mg 8 mg Daily 15. ondansetron - 16 mg 1 tab 1 tab as needed every 8 hrs for severe nausea 16. propranoloL - 80 mg 1 tab Daily 17. Vitamin D - 50,000 unit 1 Capsule Weekly Medications Last Reconciled by Marleni Rock MA on 03/04/2025 ALLERGIES: No Known Allergies REVIEW OF SYSTEMS: A complete 14-point review of systems was performed and is negative except as noted in interval history. PHYSICAL EXAMINATION: VITAL SIGNS: Temperature?98.2, B/P?107/74, Oxygen?Saturation?99% Weight?192?lbs (Change?since?02/27/25:?-15.4?lbs) PAIN: 8 - Very severe pain ECOG Performance Status: 0 - Asymptomatic and fully active GENERAL APPEARANCE: Appears well, in no apparent distress, appropriately interactive. HEENT: Normocephalic, no temporal wasting, normal conjunctiva, no scleral icterus, normal hearing, lips without lesions, neck normal range of motion. CARDIOVASCULAR: Not assessed. PULMONARY: Normal respiratory effort, no respiratory distress or use of accessory muscles, speaking in full sentences, no tachypnea. EXTREMITIES: No pedal edema or cyanosis. SKIN: Normal skin appearance. NEUROLOGIC: Alert and oriented x4. PSHYCHIATRIC: Appropriate affect, mood normal, behavior normal, intact thought and speech. LABORATORY DATA: I have personally reviewed and interpreted each of the patient?s relevant lab tests, abnormal findings are below: Date 02/23/25 02/25/25 ??WHITE?BLOOD?COUNT?(Thou/mm3) 9.2 17.1?H ??RED?BLOOD?COUNT?(Miln/mm3) 3.85?L 3.46?L ??HEMOGLOBIN?(gm/dl) 11.2?L 10.2?L ??HEMATOCRIT?(%) 34.0?L 30.3?L ??PLATELET?COUNT?(Thou/mm3) 286 264 ??NEUTROPHILS?%,?AUTO?(%) 50 82?H ??LYMPH?%,?AUTO?(%) 40 13 ??NEUTROPHILS,?AUTO?(Thou/mm3) 4.6 14.0?H ??GLUCOSE,RANDOM?(mg/dL) 118?H 188?H ??BLOOD?UREA?NITROGEN?(mg/dL) 20 20 ??CREATININE?(mg/dL) 0.90 0.90 ??SODIUM?(mmol/L) 142 140 ??POTASSIUM?(mmol/L) 3.8 4.1 ??CHLORIDE?(mmol/L) 106 106 ??CrCl?(CandG)?(ml/min) 65.55 66.07 ??AST/SGOT?(Unit/L) 26 23 ??ALT/SGPT?(Unit/L) 27 24 ??ALKALINE?PHOSPHATASE?(Unit/L) 80 69 ??BILIRUBIN,?TOTAL?(mg/dL) 0.3 0.3 ??PROTEIN?TOTAL?(gm/dl) 7.1 6.5 ??ALBUMIN,?SERUM?(gm/dl) 4.5 4.2 ??GLOBULIN?(gm/dl) 2.6 2.3 ??ALBUMIN/GLOBULIN?RATIO 1.7 1.8 ??CALCIUM,?SERUM?(mg/dL) 9.4 9.1 ??CALCIUM?SERUM?(CORRECTED)?(mg/dL) 9.4 9.1 ASSESSMENT/PLAN: Eddie Gerber is a patient with a history of breast cancer diagnosed over 8 months ago, presenting for oncology follow-up and management. Right Breast Cancer Patient was diagnosed with breast cancer over 8 months ago. The tumor was 3 cm in size, located 3.5 cm from the nipple, with dimensions of 3 x 3 x 2.5 cm. One lymph node was positive (N1 microstatic disease), and 5 lymph nodes were removed during surgery. The Oncotype Dx score was 40, performed on July 15, 2024. The cancer was ER-positive. Based on the Oncotype score, the patient was recommended to receive chemotherapy and anti-endocrine therapy. However, the patient has not received any radiation therapy or chemotherapy to date. The hormone and HER2 status require further clarification. Given the significant delay in treatment initiation, the effectiveness of chemotherapy may be reduced, but it will still be considered. Eddie, a female patient with right breast cancer, presents with generalized pain, nausea, and weight loss after receiving her first cycle of chemotherapy. Assessment: Patient has right breast cancer confirmed by PET-CT scan, which shows no metastasis. Patient has completed 1 out of 4 planned chemotherapy cycles. Current weight is 192 lbs, down from 204 lbs previously, indicating significant weight loss likely due to treatment side effects and decreased a ppetite. Plan: - Continue chemotherapy regimen with 10% dose reduction - Complete remaining 3 cycles of chemotherapy - Order brain MRI - Schedule breast ultrasound after completion of chemotherapy to assess scar tissue - Prescribe anti-nausea medication to be taken for 3 days before each chemotherapy treatment - Encourage oral hydration and consider IV fluids between treatments if needed - Advise on dietary modifications: increase fruit and vegetable intake, reduce sugar consumption - Recommend light physical activity (e.g., short walks) as tolerated Osteoporosis Osteoporosis Patient has a history of Prolia use, suggesting a diagnosis of osteoporosis or high risk for bone loss. The last Prolia dose was administered approximately 2 years ago, indicating a lapse in treatment. Plan: - Restart Prolia treatment - Assess bone health and consider ordering bone density scan - Educate patient on the importance of consistent Prolia administration for bone health Chemotherapy Side Effects Assessment: Patient reports severe side effects following the first chemotherapy cycle, including generalized pain (head, stomach, hands), nausea, and loss of appetite. Patient also experiences a popping sensation, which is attributed to the injection given to stimulate cell production (likely a granulocyte colony- stimulating factor). Despite the severity of symptoms, the current chemotherapy regimen is described as the lightest available for the patient's cancer type. Plan: - Educate patient on proper use of prescribed anti-nausea medications: - zofran medication to be taken every 8 hours - compazine medication to be taken every 6 hours - Provide prescription refill for anti-nausea medication - Advise patient to contact clinic if nausea persists or worsens - Encourage adequate fluid intake and consider IV hydration if oral intake is insufficient - Monitor weight and nutritional status at follow-up visits ORDERS: Order # Description [id number] CBC + Comprehensive Metabolic Panel [id number] Lab Appointment [id number] Follow Up Appointment [id number] Infusion 5 Hours [id number] Injection Clinic 15 Min [id number] CBC + Comprehensive Metabolic Panel [id number] Lab Appointment [id number] Follow Up Appointment [id number] Infusion 5 Hours [id number] Injection Clinic 15 Min [id number] CBC + Comprehensive Metabolic Panel [id number] Lab Appointment [id number] Follow Up Appointment [id number] Infusion 5 Hours [id number] Injection Clinic 15 Min [id number] CBC + Comprehensive Metabolic Panel [id number] Lab Appointment [id number] Follow Up Appointment RETURN TO CLINIC: BILLING AND COMPLIANCE: I reviewed external records from providers outside my specialty as summarized above. I spent a total of 50 minutes on this patient?s care on the day of their visit excluding time spent related to any billed procedures. This time includes time spent with the patient as well as time spent documenting in the medical record, reviewing patients records and tests, obtaining history, placing orders, communicating with other healthcare professionals, counseling the patient, family or caregiver, and/or care coordination for the diagnoses above. Electronically Signed by: {Object.Sanct_ID*PnP.NameFL@M}, {Object.Sanct_ID*PnP.Suffix@U} D: {Object.Sanct_Date} T: {Object.Sanct_Time} CC: PCP: Inocencio Hopper Referring: Inocencio Hopper This document was completed utilizing speech recognition software. Grammatical errors, random word insertions, pronoun errors, and incomplete sentences are an occasional consequence of this system due to software limitations, ambient noise, and hardware issues. Any formal questions or concerns about the content, text or information contained within the body of this dictation should be directly addressed to the provider for clarification.
[2025-03-18 10:03] LABS: Basophils # (Auto) 0.1 Thou/mm3 (0.0-0.2); Basophils % (Auto) 2 % (0-2.5); Eosinophils # (Auto) 0.1 Thou/mm3 (0.0-0.5); Eosinophils % (Auto) 1 % (0-10); Hematocrit 32.1 % (36.0-46.0); Hemoglobin 10.2 g/dL (12.0-16.0); Immature Granulocytes % (Auto) 1 % (0-0); Immature Granulocytes Auto 0.08 Thou/mm3 (0.00-0.00); Lymphocytes # (Auto) 2.8 Thou/mm3 (1.0-4.8); Lymphocytes % (Auto) 38 % (10-50); Mean Corpuscular HGB Conc 31.8 g/dl (31.0-37.0); Mean Corpuscular Hemoglobin 29.4 pg (25.0-35.0); Mean Corpuscular Volume 93 fL (80-100); Monocytes # (Auto) 0.8 Thou/mm3 (0.0-0.8); Monocytes % (Auto) 10 % (0-12); Neutrophils # (Auto) 3.5 Thou/mm3 (1.8-7.7); Neutrophils % (Auto) 48 % (37-80); Nucleated Red Blood Cell % 0 /100 WBC (0); Platelet Count 299 Thou/mm3 (140-440); RDW Standard Deviation 51.2 fL (36.4-46.3); Red Blood Count 3.47 Miln/mm3 (4.00-5.20); White Blood Count 7.3 Thou/mm3 (3.6-11.0)
[2025-03-18 10:22] LABS: Alanine Aminotransferase 27 U/L (10-49); Albumin, Serum 4.1 gm/dL (3.4-4.8); Alkaline Phosphatase 61 U/L (46-116); Anion Gap 9 (7-16); Aspartate Amino Transferase 25 U/L (0-34); BUN/Creatinine Ratio 15 Ratio (12-20); Bilirubin,Total 0.3 mg/dL (0.3-1.2); Blood Urea Nitrogen 12 mg/dL (9-23); Calcium 9.7 mg/dL (8.3-10.6); Calcium (Corrected) 9.7 mg/dL (8.5-10.1); Carbon Dioxide 25.8 mMol/L (20.0-31.0); Chloride 106 mMol/L (98-107); Creatinine (Component) 0.8 mg/dL (0.6-1.3); Globulin 2.1 gm/dL (2.3-3.5); Glucose 139 mg/dL (74-106); Osmolality,Calculated 282 (275-295); Potassium 3.7 mMol/L (3.4-5.1); Sodium 141 mMol/L (136-145); Total Protein 6.2 gm/dL (5.7-8.2); eGFR > 60 See Note
== END 2025-03-23 23:59 | disposition home or self-care (01) ==
LOC: SCTC 10:22
PROVIDERS: PCP Physician Assistant; Referring Provider Physician Assistant; Visit Provider Internal Medicine Hematology & Oncology
DX: Z51.11 Encounter for antineoplastic chemotherapy (principal); C50.811 Malignant neoplasm of overlapping sites of right female breast; Z17.0 Estrogen receptor positive status [ER+]; R11.0 Nausea; R53.83 Other fatigue; M81.0 Age-related osteoporosis without current pathological fracture; R51.9 Headache, unspecified; R10.9 Unspecified abdominal pain; M79.642 Pain in left hand; M79.641 Pain in right hand; R63.0 Anorexia; T45.1X5D Adverse effect of antineoplastic and immunosuppressive drugs, subsequent encounter; Z68.36 Body mass index [BMI] 36.0-36.9, adult
CPT/HCPCS: 36591; 80053; 85025; 96360; 96367; 96372; 96413; 96415; 96417; 99212; A4216; J1100; J1453; J1642; J2405; J2506; J7030; J7040; J7050; J9075; J9171; A9270; G0463

== ENCOUNTER → 2025-04-15 | Outpatient (CLI) | payer MEDICAID, SELFPAY ==
--- NOTE | 2025-04-15 14:30 | XR_ITS ---
Examination: Breast ultrasound, unilateral, right complete Date and time of exam: April 15, 2025 1351 hours INDICATIONS: Mammogram February 23, 2025 architectural distortion right axilla and 12:00 position right breast Technique: Real-time norwood scale ultrasonographic imaging performed right breast including all 4 quadrants as well as nipple retroareolar and axillary region. Findings: 12:00 and 11:00 versus scar formation Retroareolar solid irregular mass 3.5 x 2.6 cm Axillary scar formation IMPRESSION: BI-RADS Category 4: Suspicious for malignancy Suspicious mass retroareolar region right breast, biopsy is needed to exclude breast carcinoma This mass is amenable to ultrasound-guided breast biopsy for diagnosis Also recommend continued 6 month follow-up right breast sonography to document stability of scar formation in the 12:00 and 11:00 position right breast
== END | disposition home or self-care (01) ==
LOC: CDIM 13:20
PROVIDERS: PCP Physician Assistant; Referring Provider Internal Medicine Hematology & Oncology; Visit Provider Internal Medicine Hematology & Oncology
DX: N63.41 Unspecified lump in right breast, subareolar (principal); N64.89 Other specified disorders of breast; C50.911 Malignant neoplasm of unspecified site of right female breast
CPT/HCPCS: 76641

== ENCOUNTER 2025-04-23 13:16 | Outpatient (RCR) | payer MEDICAID, SELFPAY ==
[2025-03-31 11:44] LABS: Hematocrit 28.9 % (36.0-46.0); Hemoglobin 9.7 g/dL (12.0-16.0)
[2025-04-08 12:50] LABS: Basophils # (Auto) 0.1 Thou/mm3 (0.0-0.2); Basophils % (Auto) 1 % (0-2.5); Eosinophils # (Auto) 0.0 Thou/mm3 (0.0-0.5); Eosinophils % (Auto) 0 % (0-10); Hematocrit 29.8 % (36.0-46.0); Hemoglobin 9.4 g/dL (12.0-16.0); Immature Granulocytes Auto 0.24 Thou/mm3 (0.00-0.00); Lymphocytes # (Auto) 2.1 Thou/mm3 (1.0-4.8); Lymphocytes % (Auto) 19 % (10-50); Mean Corpuscular HGB Conc 31.5 g/dl (31.0-37.0); Mean Corpuscular Hemoglobin 29.7 pg (25.0-35.0); Mean Corpuscular Volume 94 fL (80-100); Monocytes # (Auto) 0.8 Thou/mm3 (0.0-0.8); Monocytes % (Auto) 8 % (0-12); Neutrophils # (Auto) 7.7 Thou/mm3 (1.8-7.7); Neutrophils % (Auto) 70 % (37-80); Nucleated Red Blood Cell # 0.00 Thou/mm3 (0.00-0.00); Nucleated Red Blood Cell % 0 /100 WBC (0); Platelet Count 428 Thou/mm3 (140-440); RDW Standard Deviation 54.9 fL (36.4-46.3); Red Blood Count 3.16 Miln/mm3 (4.00-5.20); White Blood Count 11.0 Thou/mm3 (3.6-11.0)
[2025-04-08 13:09] LABS: Alanine Aminotransferase 30 U/L (10-49); Albumin, Serum 4.1 gm/dL (3.4-4.8); Albumin/Globulin Ratio 1.6 (1.2-2.2); Alkaline Phosphatase 80 U/L (46-116); Anion Gap 10 (7-16); Aspartate Amino Transferase 25 U/L (0-34); BUN/Creatinine Ratio 18 Ratio (12-20); Bilirubin,Total 0.3 mg/dL (0.3-1.2); Blood Urea Nitrogen 14 mg/dL (9-23); Calcium 9.8 mg/dL (8.3-10.6); Calcium (Corrected) 9.8 mg/dL (8.5-10.1); Carbon Dioxide 19.9 mMol/L (20.0-31.0); Chloride 109 mMol/L (98-107); Creatinine (Component) 0.8 mg/dL (0.6-1.3); Globulin 2.5 gm/dL (2.3-3.5); Glucose 163 mg/dL (74-106); Osmolality,Calculated 282 (275-295); Potassium 4.2 mMol/L (3.4-5.1); Sodium 139 mMol/L (136-145); Total Protein 6.6 gm/dL (5.7-8.2); eGFR > 60 See Note
== END 2025-04-23 23:59 | disposition home or self-care (01) ==
LOC: SCTC 13:16
PROVIDERS: PCP Physician Assistant; Referring Provider Physician Assistant; Visit Provider Internal Medicine Hematology & Oncology
DX: Z51.11 Encounter for antineoplastic chemotherapy (principal); C50.011 Malignant neoplasm of nipple and areola, right female breast; Z17.0 Estrogen receptor positive status [ER+]; Z71.3 Dietary counseling and surveillance; M81.0 Age-related osteoporosis without current pathological fracture; R11.0 Nausea; R51.9 Headache, unspecified; M79.642 Pain in left hand; M79.641 Pain in right hand; R10.9 Unspecified abdominal pain; T45.1X5D Adverse effect of antineoplastic and immunosuppressive drugs, subsequent encounter
CPT/HCPCS: 36430; 36591; 80053; 85014; 85018; 85025; 96360; 96361; 96366; 96367; 96372; 96375; 96413; 96415; 96417; A4216; J1100; J1453; J1642; J2405; J2506; J7030; J7040; J7050; J9075; J9171; A9270

== ENCOUNTER 2025-05-12 14:47 | Outpatient (RCR) | payer MEDICAID, SELFPAY ==
[2025-04-29 16:54] LABS: Basophils # (Auto) 0.0 Thou/mm3 (0.0-0.2); Basophils % (Auto) 0 % (0-2.5); Eosinophils # (Auto) 0.0 Thou/mm3 (0.0-0.5); Eosinophils % (Auto) 0 % (0-10); Hematocrit 29.7 % (36.0-46.0); Hemoglobin 9.5 g/dL (12.0-16.0); Immature Granulocytes Auto 0.21 Thou/mm3 (0.00-0.00); Lymphocytes # (Auto) 1.2 Thou/mm3 (1.0-4.8); Lymphocytes % (Auto) 13 % (10-50); Mean Corpuscular HGB Conc 32.0 g/dl (31.0-37.0); Mean Corpuscular Hemoglobin 30.9 pg (25.0-35.0); Mean Corpuscular Volume 97 fL (80-100); Monocytes # (Auto) 0.1 Thou/mm3 (0.0-0.8); Monocytes % (Auto) 1 % (0-12); Neutrophils # (Auto) 8.0 Thou/mm3 (1.8-7.7); Neutrophils % (Auto) 84 % (37-80); Nucleated Red Blood Cell # 0.00 Thou/mm3 (0.00-0.00); Nucleated Red Blood Cell % 0 /100 WBC (0); Platelet Count 333 Thou/mm3 (140-440); RDW Standard Deviation 63.2 fL (36.4-46.3); Red Blood Count 3.07 Miln/mm3 (4.00-5.20); White Blood Count 9.6 Thou/mm3 (3.6-11.0)
[2025-04-29 17:15] LABS: Alanine Aminotransferase 29 U/L (10-49); Albumin, Serum 4.3 gm/dL (3.4-4.8); Albumin/Globulin Ratio 2.0 (1.2-2.2); Alkaline Phosphatase 70 U/L (46-116); Anion Gap 9 (7-16); Aspartate Amino Transferase 30 U/L (0-34); BUN/Creatinine Ratio 25 Ratio (12-20); Bilirubin,Total 0.3 mg/dL (0.3-1.2); Blood Urea Nitrogen 20 mg/dL (9-23); Calcium 9.6 mg/dL (8.3-10.6); Calcium (Corrected) 9.6 mg/dL (8.5-10.1); Carbon Dioxide 22.7 mMol/L (20.0-31.0); Chloride 106 mMol/L (98-107); Creatinine (Component) 0.8 mg/dL (0.6-1.3); Globulin 2.1 gm/dL (2.3-3.5); Glucose 220 mg/dL (74-106); Osmolality,Calculated 285 (275-295); Potassium 4.3 mMol/L (3.4-5.1); Sodium 138 mMol/L (136-145); Total Protein 6.4 gm/dL (5.7-8.2); eGFR > 60 See Note
[2025-05-11 09:15] LABS: Basophils # (Auto) 0.1 Thou/mm3 (0.0-0.2); Basophils % (Auto) 1 % (0-2.5); Eosinophils # (Auto) 0.0 Thou/mm3 (0.0-0.5); Eosinophils % (Auto) 0 % (0-10); Hematocrit 30.1 % (36.0-46.0); Hemoglobin 9.6 g/dL (12.0-16.0); Immature Granulocytes Auto 0.70 Thou/mm3 (0.00-0.00); Lymphocytes # (Auto) 1.9 Thou/mm3 (1.0-4.8); Lymphocytes % (Auto) 15 % (10-50); Mean Corpuscular HGB Conc 31.9 g/dl (31.0-37.0); Mean Corpuscular Hemoglobin 30.7 pg (25.0-35.0); Mean Corpuscular Volume 96 fL (80-100); Monocytes # (Auto) 0.9 Thou/mm3 (0.0-0.8); Monocytes % (Auto) 7 % (0-12); Neutrophils # (Auto) 9.2 Thou/mm3 (1.8-7.7); Neutrophils % (Auto) 72 % (37-80); Nucleated Red Blood Cell # 0.04 Thou/mm3 (0.00-0.00); Nucleated Red Blood Cell % 0 /100 WBC (0); Platelet Count 161 Thou/mm3 (140-440); RDW Standard Deviation 62.0 fL (36.4-46.3); Red Blood Count 3.13 Miln/mm3 (4.00-5.20); White Blood Count 12.7 Thou/mm3 (3.6-11.0)
[2025-05-11 09:37] LABS: Alanine Aminotransferase 19 U/L (10-49); Albumin, Serum 4.0 gm/dL (3.4-4.8); Albumin/Globulin Ratio 2.1 (1.2-2.2); Alkaline Phosphatase 108 U/L (46-116); Anion Gap 13 (7-16); Aspartate Amino Transferase 18 U/L (0-34); BUN/Creatinine Ratio 23 Ratio (12-20); Bilirubin,Total 0.3 mg/dL (0.3-1.2); Blood Urea Nitrogen 16 mg/dL (9-23); Calcium 9.9 mg/dL (8.3-10.6); Calcium (Corrected) 9.9 mg/dL (8.5-10.1); Carbon Dioxide 20.2 mMol/L (20.0-31.0); Chloride 107 mMol/L (98-107); Creatinine (Component) 0.7 mg/dL (0.6-1.3); Globulin 1.9 gm/dL (2.3-3.5); Glucose 192 mg/dL (74-106); Osmolality,Calculated 285 (275-295); Potassium 3.7 mMol/L (3.4-5.1); Sodium 140 mMol/L (136-145); Total Protein 5.9 gm/dL (5.7-8.2); eGFR > 60 See Note
--- NOTE | 2025-05-12 16:22 | CTCFLWUP_ITS ---
Patient: EDDIE BENAVIDES : 1955 Page 3 of 5 FOLLOW UP NOTE DATE OF SERVICE: 05/12/2025 NAME: EDDIE BENAVIDES ACCOUNT: [id number] : 1955 AGE: 69 INTERVAL HISTORY: Subjective: Chief Complaint Patient has finished chemotherapy with TC. Patient have fatigue and tiredness but otherwise doing well Patient recently completed ultrasound of her breast and here to discuss results. No other new complaints Review of Systems General: Positive for generalized pain, fatigue, decreased appetite, and weight loss. HEENT: Positive for headache. Gastrointestinal: Positive for abdominal pain, negative for nausea and vomiting. Musculoskeletal: Positive for hand pain and generalized body aches. Other: Positive for popping sensation associated with injection. Objective: Vital Signs - Weight: 192 kg Laboratory, Imaging, and Diagnostic Test Results - PET-CT scan: No cancer detected except in the right breast. No metastatic spread. ONCOLOGY HISTORY: DIAGNOSIS: Malignant neoplasm of unspecified site of right female breast [ICD10] C50.911 DATE OF DIAGNOSIS: 04/23/2024 STAGE/TNM: IIB T2 N1 M0 s/p lumpectomy. 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 She underwent a biopsy and ultrasounds, but did not receive radiation therapy. The tumor was found in her breast, and she had 5 lymph nodes removed, one of which was positive for cancer. The tumor mass was 3 x 3 x 2.5 cm, located 3.5 cm from the nipple. Her Oncotype Dx score was 40, performed on July 15, 2024. 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 Patient received lumpectomy on 06/02/2024. Patient was then seen in our clinic care in February 2025 and started on adjuvant chemotherapy with a TC. Patient was very reluctant with the chemotherapy but has completed 4 cycles of chemotherapy medical History - Breast cancer diagnosed approximately 8 months ago - ER-positive breast cancer with N1 microstatic disease and N1 positive lymph node involvement - Primary breast tumor measuring 3 cm x 3 cm x 2.5 cm, located 3.5 cm from the nipple Surgical History - Breast cancer surgery with removal of 5 lymph nodes, one of which was positive for cancer - Breast biopsy Medications and Supplements - Prolia - Last dose received almost 2 years ago. Social History - Insurance: Patient has [employer] coverage OTHER MEDICAL HISTORY/CONDITIONS: HYPOTHYROIDISM DIABETES TYPE 2 HYPERLIPIDEMIA VITAMIN D DEFICIENCY OBESITY DEPRESSIVE DISORDER HYPERTENSION INSOMNIA GASTRITIS UTIS OSTEOPOROSIS RIGHT?BREAST?LUMPECTOMY?04/2024 FAMILY HISTORY: Father:?DENIES Mother:?DENIES Sibling:?DENIES Children:?DENIES Cancer?History:?RIGHT?BREAST?CANCER SOCIAL HISTORY: Occupational?History:?RETIRED [employer] Education?Level:?Completed something less than 8th grade Marital?Status:?Life?Partner Tobacco?Use:?DENIES ETOH?Use:?SOCIAL?OCCASIONAL?BEER Drug?Note:?DENIES Social History Note:?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 Anti-Diarrheal (loperamide) - 2 mg 2 tab Daily 2. Arimidex - 1 mg 1 tab Daily 3. aspirin - 81 mg 1 Capsule Daily 4. atorvastatin - 10 mg 1 tab Daily 5. baclofen - 10 mg 1 tab In the evening 6. Compazine - 5 mg 5 mg Daily 7. dexamethasone - 4 mg 2 tab take 2 tabs twice daily starting 1 day prior to ch 8. FLUoxetine - 20 mg 1 Capsule Daily 9. gemfibrozil - 600 mg 1 tab Twice a Day 10. hydrocodone-acetaminophen - 5-325 mg 1 tab Every 6 Hours 11. ibuprofen - 800 mg 1 tab Three times a day 12. levothyroxine - 50 mcg 1 tab Daily 13. lisinopril - 2.5 mg 1 tab Daily 14. metFORMIN - 850 mg 1 tab In the evening 15. ondansetron - 8 mg 8 mg Daily 16. ondansetron - 16 mg 1 tab 1 tab as needed every 8 hrs for severe nausea 17. propranoloL - 80 mg 1 tab Daily 18. Vitamin D - 50,000 unit 1 Capsule Weekly Medications Last Reconciled by Marleni Rock MA on 05/12/2025 ALLERGIES: No Known Allergies REVIEW OF SYSTEMS: A complete 14-point review of systems was performed and is negative except as noted in interval history. PHYSICAL EXAMINATION: VITAL SIGNS: PAIN: 0 - No pain ECOG Performance Status: 0 - Asymptomatic and fully active GENERAL APPEARANCE: Appears well, in no apparent distress, appropriately interactive. HEENT: Normocephalic, no temporal wasting, normal conjunctiva, no scleral icterus, normal hearing, lips without lesions, neck normal range of motion. CARDIOVASCULAR: Not assessed. PULMONARY: Normal respiratory effort, no respiratory distress or use of accessory muscles, speaking in full sentences, no tachypnea. EXTREMITIES: No pedal edema or cyanosis. SKIN: Normal skin appearance. NEUROLOGIC: Alert and oriented x4. PSHYCHIATRIC: Appropriate affect, mood normal, behavior normal, intact thought and speech. Breast examination shows palpable mass in the right breast under the incision site LABORATORY DATA: I have personally reviewed and interpreted each of the patient?s relevant lab tests, abnormal findings are below: Date 04/29/25 05/11/25 ??WHITE?BLOOD?COUNT?(Thou/mm3) 9.6 12.7?H ??RED?BLOOD?COUNT?(Miln/mm3) 3.07?L 3.13?L ??HEMOGLOBIN?(gm/dl) 9.5?L 9.6?L ??HEMATOCRIT?(%) 29.7?L 30.1?L ??PLATELET?COUNT?(Thou/mm3) 333 161 ??NEUTROPHILS?%,?AUTO?(%) 84?H 72 ??LYMPH?%,?AUTO?(%) 13 15 ??NEUTROPHILS,?AUTO?(Thou/mm3) 8.0?H 9.2?H ??GLUCOSE,RANDOM?(mg/dL) 220?H 192?H ??BLOOD?UREA?NITROGEN?(mg/dL) 20 16 ??CREATININE?(mg/dL) 0.80 0.70 ??SODIUM?(mmol/L) 138 140 ??POTASSIUM?(mmol/L) 4.3 3.7 ??CHLORIDE?(mmol/L) 106 107 ??CrCl?(CandG)?(ml/min) 71.98 80.57 ??AST/SGOT?(Unit/L) 30 18 ??ALT/SGPT?(Unit/L) 29 19 ??ALKALINE?PHOSPHATASE?(Unit/L) 70 108 ??BILIRUBIN,?TOTAL?(mg/dL) 0.3 0.3 ??PROTEIN?TOTAL?(gm/dl) 6.4 5.9 ??ALBUMIN,?SERUM?(gm/dl) 4.3 4.0 ??GLOBULIN?(gm/dl) 2.1?L 1.9?L ??ALBUMIN/GLOBULIN?RATIO 2.0 2.1 ??CALCIUM,?SERUM?(mg/dL) 9.6 9.9 ??CALCIUM?SERUM?(CORRECTED)?(mg/dL) 9.6 9.9 ASSESSMENT/PLAN: Right breast cancer ER/TX positive status postlumpectomy at least stage II status post chemotherapy with a TC Patient started on antiendocrine therapy with Arimidex Will get bone density and start on Zometa if needed Already on vitamin D3 supplementation weekly per PCP As patient have palpable mass will send to Dr. Lyons for opinion Will refer to IR for biopsy RTC in 2 months for follow-up ORDERS: Order # Description [id number] Unilateral + Right + 3D Mammogram Diagnostic [id number] CBC + Comprehensive Metabolic Panel [id number] Lab Appointment [id number] Follow Up Appointment MD RETURN TO CLINIC: I reviewed the diagnosis, prognosis, and recommended treatment/procedure options with the patient (and/or their legal sales representative printing paper), including the potential benefits, risks, side effects and alternative therapies. We also discussed the option of no treatment and the possibility of clinical trial participation, if applicable. All questions were addressed, and they demonstrated understanding. They provided informed consent to proceed with the proposed plan of care. BILLING AND COMPLIANCE: I reviewed external records from providers outside my specialty as summarized above. I spent a total of 50 minutes on this patient?s care on the day of their visit excluding time spent related to any billed procedures. This time includes time spent with the patient as well as time spent documenting in the medical record, reviewing patients records and tests, obtaining history, placing orders, communicating with other healthcare professionals, counseling the patient, family or caregiver, and/or care coordination for the diagnoses above. Electronically Signed by: Colton Chen MD T: 4:19 PM CC: PCP: Inocencio Hopper Referring: Inocencio Hopper This document was completed utilizing speech recognition software. Grammatical errors, random word insertions, pronoun errors, and incomplete sentences are an occasional consequence of this system due to software limitations, ambient noise, and hardware issues. Any formal questions or concerns about the content, text or information contained within the body of this dictation should be directly addressed to the provider for clarification.
== END 2025-05-24 23:59 | disposition home or self-care (01) ==
LOC: SCTC 14:47
PROVIDERS: PCP Physician Assistant; Referring Provider Physician Assistant; Visit Provider Internal Medicine Hematology & Oncology
DX: Z51.11 Encounter for antineoplastic chemotherapy (principal); C50.811 Malignant neoplasm of overlapping sites of right female breast; Z17.0 Estrogen receptor positive status [ER+]; Z17.21 Progesterone receptor positive status; R53.83 Other fatigue; Z90.11 Acquired absence of right breast and nipple
CPT/HCPCS: 36591; 80053; 85025; 96360; 96367; 96372; 96413; 96417; 99213; A4216; J1100; J1453; J1642; J2405; J2506; J7030; J7040; J7050; J9075; J9171; G0463

== ENCOUNTER → 2025-06-03 | Outpatient (CLI) | payer MEDICAID, SELFPAY ==
[2025-06-02 12:54] LABS: Basophils # (Auto) 0.1 Thou/mm3 (0.0-0.2); Basophils % (Auto) 1 % (0-2.5); Eosinophils # (Auto) 0.3 Thou/mm3 (0.0-0.5); Eosinophils % (Auto) 4 % (0-10); Hematocrit 32.7 % (36.0-46.0); Hemoglobin 10.2 g/dL (12.0-16.0); Immature Granulocytes Auto 0.04 Thou/mm3 (0.00-0.00); Lymphocytes # (Auto) 2.8 Thou/mm3 (1.0-4.8); Lymphocytes % (Auto) 32 % (10-50); Mean Corpuscular HGB Conc 31.2 g/dl (31.0-37.0); Mean Corpuscular Hemoglobin 31.2 pg (25.0-35.0); Mean Corpuscular Volume 100 fL (80-100); Monocytes # (Auto) 0.8 Thou/mm3 (0.0-0.8); Monocytes % (Auto) 9 % (0-12); Neutrophils # (Auto) 4.9 Thou/mm3 (1.8-7.7); Neutrophils % (Auto) 55 % (37-80); Nucleated Red Blood Cell # 0.00 Thou/mm3 (0.00-0.00); Nucleated Red Blood Cell % 0 /100 WBC (0); Platelet Count 254 Thou/mm3 (140-440); RDW Standard Deviation 63.7 fL (36.4-46.3); Red Blood Count 3.27 Miln/mm3 (4.00-5.20); White Blood Count 8.9 Thou/mm3 (3.6-11.0)
[2025-06-02 13:15] LABS: Blood Urea Nitrogen 17 mg/dL (9-23)
[2025-06-02 13:18] LABS: INR 1.0 (0.9-1.3); Partial Thromboplastin Time 25.1 Seconds (22.0-36.0); Prothrombin Time 11.4 Seconds (9.0-12.2)
--- NOTE | 2025-06-03 10:30 | XR_ITS ---
Examinations: Ultrasound-guided percutaneous breast biopsy, right breast retroareolar nodule Right breast sonography limited INDICATIONS: BI-RADS 4 suspicious nodule retroareolar region right breast on sonography April 15, 2025. Exam date and time: June 03, 2025 1104 hours. Informed consent provided. Technique: A timeout was completed verifying correct patient, procedure, site, positioning, and special equipment if applicable Informed consent provided. The patient was placed in a supine position for the breast biopsy. Sonographic images of the breast were performed for localization of the suspicious nodule The patient's breast was prepped and draped in sterile fashion. Maximum sterile barrier technique, hand hygiene, ultrasound sterile technique 1% lidocaine was used to anesthetize the skin and breast adjacent to the suspicious nodule. Utilizing ultrasonographic guidance, 8 core biopsies were obtained of the suspicious nodule utilizing an 18-gauge BioPince needle. The specimens appears satisfactory. US guided breast biopsy marker placement. Estimated blood loss 3 cc. The patient tolerated the procedure well and there were no complications. Impression: Successful ultrasound-guided percutaneous breast biopsy, right breast retroareolar nodule. Ultrasound guided breast biopsy marker placement.
== END | disposition home or self-care (01) ==
LOC: SIRX 10:30
PROVIDERS: Radiology Diagnostic Radiology; PCP Physician Assistant; Referring Provider Internal Medicine Hematology & Oncology; Visit Provider Internal Medicine Hematology & Oncology
DX: N60.31 Fibrosclerosis of right breast (principal); R92.1 Mammographic calcification found on diagnostic imaging of breast; C50.911 Malignant neoplasm of unspecified site of right female breast; Z01.812 Encounter for preprocedural laboratory examination
CPT/HCPCS: 19083; 36415; 82565; 84520; 85025; 85610; 85730; A4648

== ENCOUNTER 2025-06-09 09:13 | Outpatient (RCR) | payer MEDICAID, SELFPAY ==
--- NOTE | 2025-06-09 10:09 | CTCFLWUP_ITS ---
[facility] [address] [place], [place] [address] FOLLOW-UP NOTE Date: 06/09/2025 MR#: [id number] Name: EDDIE BENAVIDES : 1955 Dx: C50.911 Malignant neoplasm of unspecified site of right female breast Identification. Patient with stage 2 B pT2 pN1a right breast CA tumor size 3 cm 1 macro met of 5 nodes removed. Receptor positive HER2 negative. Oncotype recurrence score 40 Following surgery of 06/13/2024 right partial mastectomy and sentinel node removal underwent 4 cycles of TC chemo completed a month ago. Patient now on Arimidex for receptor positive breast cancer. Underwent ultrasound-guided biopsy of right retroareolar mass 06/03/2025 which revealed no malignancy. Discussed with patient about radiation therapy to the residual right breast tissue. Approximately 4 weeks of radiation 3 weeks whole breast +1-week boost to the tumor site will be scheduled for patient. A#1. Stage IIb [id number] right breast CA receptor positive HER2 negative status post partial mastectomy and sentinel node removal 06/13/2024. #2. Rght retroareolar mass biopsy negative for malignancy 06/03/2025. #3. Completed 4 cycles of TC chemo now on Arimidex. #5. Shall schedule patient for 4 weeks of right breast radiation including E boost, which will begin after Dr. Chen sees her in about 3 weeks. Simulation and treatment planning can be done before hand. Side effects explained. Electronically signed by: Emerson Mcgrath M.D. 06/09/2025 10:06 AM
--- NOTE | 2025-06-09 10:10 | CTCTXPLN_ITS ---
[facility] [address] [place], [place] [address] Physician Clinical Treatment Planning Note Date of Service: 06/09/2025 Name: EDDIE KNOTTPÉREZ CaraballoB.: 1955 The patient has agreed to proceed with Radiation therapy. Tests and supporting medical records were interpreted to assist in defining the tumor location and extent of disease. Further imaging will be necessary to contour and delineate the volume to which the XRT will be provided. A. Treatment Intent: Curative B. Modality: Mixed C. Requested Technique: Right breast D. Treatment Site: 3D E. Critical structures to be contoured on plan: F. In order to accomplish this plan, I am ordering/Prescribing the followin. Simulations (s) will be performed to accomplish a reproducible treatment position, to determine optimal treatment portals/beam arrangements, to design beam modifying devices and verify treatment portals on patient prior to the commencement of Radiation Therapy. Right breast 2. Devices; for immobilization and beam shaping: Vac-Nestor 3. CT Guidance for placement of XRT escobedo Scan area: Right breast 4. Portal images Frequency: 5. Invivo transit dose measurement once per week on all VMAT patients. 6. Special Physics Consult Requested for: 7. Other requests: Special procedure chemoradiation G. Dose Objectives: Curative Electronically signed by: Emerson Mcgrath M.D. 06/09/2025 10:08 AM
--- NOTE | 2025-06-09 10:12 | CTCTXPLNST_ITS ---
Radiation Oncology Treatment Planning Sheet Name: EDDIE BENAVIDES MR#: [id number] : 1955 Dx: C50.911 Malignant neoplasm of unspecified site of right female breast Date of Service: 06/09/2025 Account #: ?? Pt Treatment Intent: curative palliative other: Stage: Procedure CPT # Ordered Spec. Procedure 22292 1 Antunez Complex (set-up) 69047 R breast/E boost 2 Antunez Simple 64429 1 IMRT Plan 42054 MLC Devices VMAT 19574 Antunez 3 D 28219 R breast 1 TRTMT dev Complex 98968 Vaklok/2 freeman/E boost 4 TRTMT dev simple 44730 1 Basic Chaitanya 78279 5 Special Dosimetry 33048 Spec Physics 01440 Port Films 36428 4 SRS Cranial/1FX 14538 SBR 5 FX or Less /ex: 5 = 5 fx 49862 IMRT Simple 49409 IMRT Complex 35290 IGRT 30419 Rad del [employer] 6- 68765 Rad del [employer] 11- 72908 5000 20 Cont Med Physics 18052 4 Treatment Planning 49022 1 Weekly Evaluation 61385 4 Rad del [employer] 20 mev 74217 Special Port Plan 29723 TRTMT dev inter 58548 Isodose Complex 51853 Isodose simple 37592 Resp Motion Mgmt Simulation 52204 Placement of Fiducial Markers 37218 Electronically Signed By: Emerson Mcgrath MD, EKATERINAR 06/09/2025 10:10 AM
== END 2025-06-23 23:59 | disposition home or self-care (01) ==
LOC: SCTC 09:13
PROVIDERS: PCP Physician Assistant; Referring Provider Physician Assistant; Visit Provider Radiology Therapeutic Radiology
DX: C50.811 Malignant neoplasm of overlapping sites of right female breast (principal); Z17.0 Estrogen receptor positive status [ER+]; Z17.21 Progesterone receptor positive status; Z17.32 Human epidermal growth factor receptor 2 negative status; Z90.11 Acquired absence of right breast and nipple; Z79.811 Long term (current) use of aromatase inhibitors; Z92.21 Personal history of antineoplastic chemotherapy
CPT/HCPCS: 77470; 99213; G0463

== ENCOUNTER → 2025-06-25 | Outpatient (CLI) | payer MEDICAID, SELFPAY ==
--- NOTE | 2025-06-25 08:30 | XR_ITS ---
Examination: Diagnostic digital mammography, unilateral, right Computer aided detection 3-D breast Tomosynthesis, unilateral Date and time of exam: June 25, 2025, 0836 hours INDICATIONS: Mammogram February 23, 2025 architectural distortion 12:00 position right breast Technique: Nonmagnified MLO, CC views of the right breast have been obtained, reconstructed from 3-D Tomosynthesis images. R2 computer aided detection program utilized for evaluation of suspicious masses and/or abnormal calcifications. 3-D Tomosynthesis images obtained. Findings: The breast is heterogeneously dense, which may obscure small masses Focal asymmetry retroareolar region inner right breast noted with breast biopsy marker Architectural distortion right axillary region noted on the spot compression view Impression: BI-RADS category 3: Probably benign findings Recommend 1 additional 6 month right mammogram follow-up
== END | disposition home or self-care (01) ==
PROVIDERS: PCP Internal Medicine Hematology & Oncology; Referring Provider Internal Medicine Hematology & Oncology; Visit Provider Internal Medicine Hematology & Oncology
DX: R92.331 Mammographic heterogeneous density, right breast (principal); C50.911 Malignant neoplasm of unspecified site of right female breast
CPT/HCPCS: 77061; 77065; G0279

== ENCOUNTER → 2025-07-15 | Outpatient (CLI) | payer MEDICAID, SELFPAY ==
--- NOTE | 2025-07-15 10:30 | ECHO_ITS ---
Transthoracic Echo Report Ht (in): 62 Wt (lb): 189 Exam Location: Echo Lab Status: Preadmit [employer] Officer: Autumn Stoddard Indications: Procedure Performed: BP: 142 / 78 HR: MEASUREMENTS (Male / Female) Normal Values 2D ECHO LV Diastolic Diameter PLAX 4.5 cm 4.2 - 5.9 / 3.9 - 5.3 cm LV Systolic Diameter PLAX 2.8 cm IVS Diastolic Thickness 0.9 cm 0.6 - 1.0 / 0.6 - 0.9 cm LVPW Diastolic Thickness 1.1 cm 0.6 - 1.0 / 0.6 - 0.9 cm LV Relative Wall Thickness 0.4 LVOT Diameter 1.9 cm Ascending Aorta Diameter 2.9 cm DOPPLER MV Area PHT 3.2 cm? Mitral E Point Velocity 58.3 cm/s Mitral A Point Velocity 86.3 cm/s Mitral E to A Ratio 0.7 LV E' Lateral Velocity 6.0 cm/s Mitral E to LV E' Lateral Ratio 9.7 LV E' Septal Velocity 4.7 cm/s Mitral E to LV E' Septal Ratio 12.5 TR Peak Velocity 151.0 cm/s TR Peak Gradient 9.1 mmHg PV Peak Velocity 93.7 cm/s PV Peak Gradient 3.5 mmHg FINDINGS Left Ventricle Mild LVH.Normal left ventricular size and systolic function with no obvious regional wall motion abnormalities.there is grade I diastolic dysfunction of the left ventricle (impaired relaxation pattern). The ejection fraction is visually estimated at 65-70%. Right Ventricle The right ventricle is normal in size and systolic function. Left Atrium The left atrium is normal by two-dimensional, color flow and Doppler imaging with no structural abnormalities, no thrombus formation present. Right Atrium The right atrial cavity size is mildly increased. Atrial Septum The interatrial septum appears normal with no evidence of a shunt. Aorta The aorta is normal by two-dimensional, color flow and Doppler interrogation. Mitral Valve Trace mitral regurgitation. MAC Aortic Valve The aortic valve is trileaflet and sclerotic. Trace aortic valve regurgitation. Tricuspid Valve The tricuspid valve is normal by two-dimensional, color flow and Doppler interrogation. There is trace tricuspid valve regurgitation. Pulmonic Valve The pulmonic valve is not well visualized. There is no significant pulmonic valve regurgitation. Vessels The pulmonary artery appears normal. The inferior vena cava pulmonary and hepatic veins appear normal. Pericardium The pericardium is normal by two-dimensional imaging. There is no significant pericardial effusion. Other Findings Limited due to machine not working CONCLUSIONS Indication: Malignant neoplasm of unspecfied site of right female breast Mild LVH. Normal left ventricular size and function. Grade I diastolic dysfunction. Approximate ejection fraction is 65-70%. Mild right ventricular enlargement. Mild MAC Mild AV sclerorisis with trace AI. Trace mitral and trace tricuspid regurgitation noted. Compared to prior study of 03/11/25 Zo Mchugh (Electronically Signed) Final Date: 15 July 2025 16:51
== END | disposition home or self-care (01) ==
LOC: SDIM 09:37
PROVIDERS: PCP Physician Assistant; Referring Provider Internal Medicine Hematology & Oncology; Visit Provider Internal Medicine Hematology & Oncology
DX: I08.1 Rheumatic disorders of both mitral and tricuspid valves (principal); I50.30 Unspecified diastolic (congestive) heart failure; C50.911 Malignant neoplasm of unspecified site of right female breast
CPT/HCPCS: 93306

== ENCOUNTER → 2025-08-13 | Outpatient (CLI) | payer MEDICAID, SELFPAY ==
--- NOTE | 2025-08-13 13:00 | XR_ITS ---
Examination: Bone densitometry Date and time of exam: August 13, 2025, 1347 hours INDICATIONS: Menopause age 58, diabetic, levothyroxine 3 years, breast carcinoma diagnosis 8 years ago Technique: Lumbar spine and hip total bone mineralization values of an calculated. Peak reference and age match control results have been displayed. Findings: Lumbar spine total bone mineralization is 0.821 gm/cm2. This is 2.1 standard deviations below peak reference. This is 0.1 standard deviations below age-matched controls. Hip total bone mineralization is 0.848 gm/cm2 This is 0.9 standard deviations below peak reference. This is 0.5 standard deviations above age-matched controls Impression: There is osteopenia based on lumbar spine measurements. There is osteopenia based on hip measurements
== END | disposition home or self-care (01) ==
LOC: CDIM 13:02
PROVIDERS: PCP Family Medicine; Referring Provider Internal Medicine Hematology & Oncology; Visit Provider Internal Medicine Hematology & Oncology
DX: M85.89 Other specified disorders of bone density and structure, multiple sites (principal); C50.911 Malignant neoplasm of unspecified site of right female breast
CPT/HCPCS: 77080

== ENCOUNTER 2025-08-19 09:57 | Outpatient (RCR) | payer MEDICAID, SELFPAY ==
--- NOTE | 2025-07-27 14:45 | CTCTRTNOTE_ITS ---
[facility] [address] [place], [place] [address] Weekly Management Date: 07/27/2025 ?? Name: EDDIE Conde.O.B.: 1955 A. Patient is currently at 3724 cGy. B. Patient is tolerating treatment well. C. Resume radiation therapy. Set upE boost AM. Electronically signed by: Emerson Mcgrath M.D. 07/27/2025 2:43 PM
== END 2025-08-23 23:59 | disposition home or self-care (01) ==
LOC: SCTC 09:57
PROVIDERS: PCP Physician Assistant; Referring Provider Physician Assistant; Visit Provider Radiology Therapeutic Radiology
DX: Z51.0 Encounter for antineoplastic radiation therapy (principal); C50.811 Malignant neoplasm of overlapping sites of right female breast; Z17.0 Estrogen receptor positive status [ER+]; Z17.21 Progesterone receptor positive status; Z17.32 Human epidermal growth factor receptor 2 negative status; Z90.11 Acquired absence of right breast and nipple; L59.9 Disorder of the skin and subcutaneous tissue related to radiation, unspecified; Y84.2 Radiological procedure and radiotherapy as the cause of abnormal reaction of the patient, or of later complication, without mention of misadventure at the time of the procedure
CPT/HCPCS: 77290; 77300; 77332; 77336; 77412; 77417; 99212; G0463

== ENCOUNTER 2025-08-31 10:29 | Outpatient (RCR) | payer MEDICAID, SELFPAY ==
[2025-08-28 11:33] LABS: Basophils # (Auto) 0.0 Thou/mm3 (0.0-0.2); Basophils % (Auto) 1 % (0-2.5); Eosinophils # (Auto) 0.1 Thou/mm3 (0.0-0.5); Eosinophils % (Auto) 1 % (0-10); Hematocrit 33.1 % (36.0-46.0); Hemoglobin 10.9 g/dL (12.0-16.0); Immature Granulocytes Auto 0.06 Thou/mm3 (0.00-0.00); Lymphocytes # (Auto) 2.0 Thou/mm3 (1.0-4.8); Lymphocytes % (Auto) 24 % (10-50); Mean Corpuscular HGB Conc 32.9 g/dl (31.0-37.0); Mean Corpuscular Hemoglobin 31.1 pg (25.0-35.0); Mean Corpuscular Volume 95 fL (80-100); Monocytes # (Auto) 0.5 Thou/mm3 (0.0-0.8); Monocytes % (Auto) 7 % (0-12); Neutrophils # (Auto) 5.4 Thou/mm3 (1.8-7.7); Neutrophils % (Auto) 67 % (37-80); Nucleated Red Blood Cell # 0.00 Thou/mm3 (0.00-0.00); Nucleated Red Blood Cell % 0 /100 WBC (0); Platelet Count 310 Thou/mm3 (140-440); RDW Standard Deviation 44.3 fL (36.4-46.3); Red Blood Count 3.50 Miln/mm3 (4.00-5.20); White Blood Count 8.1 Thou/mm3 (3.6-11.0)
[2025-08-28 11:53] LABS: Alanine Aminotransferase 34 U/L (10-49); Albumin, Serum 4.5 gm/dL (3.4-4.8); Albumin/Globulin Ratio 1.7 (1.2-2.2); Alkaline Phosphatase 90 U/L (46-116); Anion Gap 11 (7-16); Aspartate Amino Transferase 32 U/L (0-34); BUN/Creatinine Ratio 23 Ratio (12-20); Bilirubin,Total 0.2 mg/dL (0.3-1.2); Blood Urea Nitrogen 18 mg/dL (9-23); Calcium 10.3 mg/dL (8.3-10.6); Calcium (Corrected) 10.3 mg/dL (8.5-10.1); Carbon Dioxide 20.9 mMol/L (20.0-31.0); Chloride 109 mMol/L (98-107); Creatinine (Component) 0.8 mg/dL (0.6-1.3); Globulin 2.7 gm/dL (2.3-3.5); Glucose 135 mg/dL (74-106); Osmolality,Calculated 285 (275-295); Potassium 3.9 mMol/L (3.4-5.1); Sodium 141 mMol/L (136-145); Total Protein 7.2 gm/dL (5.7-8.2); eGFR > 60 See Note
--- NOTE | 2025-08-31 11:48 | CTCFLWUP_ITS ---
Patient: EDDIE BENAVIDES : 1955 Page 4 of 5 FOLLOW UP NOTE DATE OF SERVICE: 08/31/2025 NAME: EDDIE BENAVIDES ACCOUNT: [id number] : 1955 AGE: 70 INTERVAL HISTORY: Visit summary patient is doing well. Patient has completed radiation and resumed anastrozole and tolerating well. Patient has been taking vitamin D3 50,000 units weekly for many years now. Patient's bone density shows osteopenia. I do not advise continuing taking such high vitamin D for a long time because of possible side effects patient also advised to continue anastrozole and get dental clearance and will be started on Zometa .God advised patient to start taking only 1000 international units daily with food ONCOLOGY HISTORY: DIAGNOSIS: Malignant neoplasm of unspecified site of right female breast [ICD10] C50.911 DATE OF DIAGNOSIS: 04/23/2024 STAGE/TNM: IIB T2 N1 M0 s/p lumpectomy. 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 She underwent a biopsy and ultrasounds, but did not receive radiation therapy. The tumor was found in her breast, and she had 5 lymph nodes removed, one of which was positive for cancer. The tumor mass was 3 x 3 x 2.5 cm, located 3.5 cm from the nipple. Her Oncotype Dx score was 40, performed on July 15, 2024. 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 Patient received lumpectomy on 06/02/2024. Patient was then seen in our clinic care in February 2025 and started on adjuvant chemotherapy with a TC. Patient was very reluctant with the chemotherapy but has completed 4 cycles of chemotherapy medical History - Breast cancer diagnosed approximately 8 months ago - ER-positive breast cancer with N1 microstatic disease and N1 positive lymph node involvement - Primary breast tumor measuring 3 cm x 3 cm x 2.5 cm, located 3.5 cm from the nipple Surgical History - Breast cancer surgery with removal of 5 lymph nodes, one of which was positive for cancer - Breast biopsy Medications and Supplements - Prolia - Last dose received almost 2 years ago. 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 Anti-Diarrheal (loperamide) - 2 mg 2 tab Daily 2. Arimidex - 1 mg 1 tab Daily 3. aspirin - 81 mg 1 Capsule Daily 4. atorvastatin - 10 mg 1 tab Daily 5. baclofen - 10 mg 1 tab In the evening 6. Compazine - 5 mg 5 mg Daily 7. dexamethasone - 4 mg 2 tab take 2 tabs twice daily starting 1 day prior to ch 8. FLUoxetine - 20 mg 1 Capsule Daily 9. gemfibrozil - 600 mg 1 tab Twice a Day 10. hydrocodone-acetaminophen - 5-325 mg 1 tab Every 6 Hours 11. ibuprofen - 800 mg 1 tab Three times a day 12. levothyroxine - 50 mcg 1 tab Daily 13. lisinopril - 2.5 mg 1 tab Daily 14. metFORMIN - 850 mg 1 tab In the evening 15. ondansetron - 8 mg 8 mg Daily 16. ondansetron - 16 mg 1 tab 1 tab as needed every 8 hrs for severe nausea 17. propranoloL - 80 mg 1 tab Daily 18. SSD - Twice a Day 19. Vitamin D - 50,000 unit 1 Capsule Weekly Medications Last Reconciled by Johanny Prescott LVN on 07/28/2025 (Reconcile on Approval: ?) ALLERGIES: No Known Allergies REVIEW OF SYSTEMS: A complete 14-point review of systems was performed and is negative except as noted in interval history. PHYSICAL EXAMINATION: VITAL SIGNS: PAIN: 0 - No pain ECOG Performance Status: 0 - Asymptomatic and fully active LABORATORY DATA: I have personally reviewed and interpreted each of the patient?s relevant lab tests, abnormal findings are below: Date 06/24/25 08/28/25 ??WHITE?BLOOD?COUNT?(Thou/mm3) 8.0 8.1 ??RED?BLOOD?COUNT?(Miln/mm3) 3.59?L 3.50?L ??HEMOGLOBIN?(gm/dl) 11.3?L 10.9?L ??HEMATOCRIT?(%) 35.7?L 33.1?L ??PLATELET?COUNT?(Thou/mm3) 256 310 ??NEUTROPHILS?%,?AUTO?(%) 64 67 ??LYMPH?%,?AUTO?(%) 27 24 ??NEUTROPHILS,?AUTO?(Thou/mm3) 5.1 5.4 ??GLUCOSE,RANDOM?(mg/dL) 167?H 135?H ??BLOOD?UREA?NITROGEN?(mg/dL) 11 18 ??CREATININE?(mg/dL) 0.80 0.80 ??SODIUM?(mmol/L) 141 141 ??POTASSIUM?(mmol/L) 3.6 3.9 ??CHLORIDE?(mmol/L) 108?H 109?H ??CrCl?(CandG)?(ml/min) 69.68 70.49 ??AST/SGOT?(Unit/L) 58?H 32 ??ALT/SGPT?(Unit/L) 35 34 ??ALKALINE?PHOSPHATASE?(Unit/L) 81 90 ??BILIRUBIN,?TOTAL?(mg/dL) 0.3 0.2?L ??PROTEIN?TOTAL?(gm/dl) 6.6 7.2 ??ALBUMIN,?SERUM?(gm/dl) 4.4 4.5 ??GLOBULIN?(gm/dl) 2.2?L 2.7 ??ALBUMIN/GLOBULIN?RATIO 2.0 1.7 ??CALCIUM,?SERUM?(mg/dL) 9.8 10.3 ??CALCIUM?SERUM?(CORRECTED)?(mg/dL) 9.8 10.3?H ASSESSMENT/PLAN: Right breast cancer ER/MI positive status postlumpectomy at least stage II status post TC and radiation on Arimidex tolerating well Calcium and vitamin D3 1000 international units daily with fatty food start Zometa every 6 months once dental clearance is complete Will continue routine screening RTC in 6 months ORDERS: Order # Description [id number] Infusion 1 Hour [id number] MD Follow Up 3 Months [id number] Infusion 1 Hour [id number] Infusion 1 Hour [id number] Infusion 1 Hour [id number] Infusion 1 Hour [id number] Infusion 1 Hour RETURN TO CLINIC: I reviewed the diagnosis, prognosis, and recommended treatment/procedure options with the patient (and/or their legal airline security representative), including the potential benefits, risks, side effects and alternative therapies. We also discussed the option of no treatment and the possibility of clinical trial participation, if applicable. All questions were addressed, and they demonstrated understanding. They provided informed consent to proceed with the proposed plan of care. BILLING AND COMPLIANCE: I reviewed external records from providers outside my specialty as summarized above. I spent a total of 50 minutes on this patient?s care on the day of their visit excluding time spent related to any billed procedures. This time includes time spent with the patient as well as time spent documenting in the medical record, reviewing patients records and tests, obtaining history, placing orders, communicating with other healthcare professionals, counseling the patient, family or caregiver, and/or care coordination for the diagnoses above. Electronically Signed by: {Object.Sanct_ID*PnP.NameFL@M}, {Object.Sanct_ID*PnP.Suffix@U} D: {Object.Sanct_Date} T: {Object.Sanct_Time} CC: PCP: Leopoldo Fuentes Referring: Leopoldo Fuentes This document was completed utilizing speech recognition software. Grammatical errors, random word insertions, pronoun errors, and incomplete sentences are an occasional consequence of this system due to software limitations, ambient noise, and hardware issues. Any formal questions or concerns about the content, text or information contained within the body of this dictation should be directly addressed to the provider for clarification.
== END 2025-09-23 23:59 | disposition home or self-care (01) ==
LOC: SCTC 10:29
PROVIDERS: PCP Family Medicine; Referring Provider Family Medicine; Visit Provider Internal Medicine Hematology & Oncology
DX: C50.811 Malignant neoplasm of overlapping sites of right female breast (principal); Z17.0 Estrogen receptor positive status [ER+]; Z17.21 Progesterone receptor positive status; Z79.811 Long term (current) use of aromatase inhibitors; Z90.11 Acquired absence of right breast and nipple
CPT/HCPCS: 36591; 80053; 85025; 99212; A4216; J1642; G0463